=== PATIENT | female | born 1960 | race Caucasian/White ===

== ENCOUNTER 2020-01-06 18:49 | Inpatient (IN) | payer MEDICAID, OTHER ==
[~2020-01-06] VITALS: Ht 165.1 cm; Wt 102.5 kg
[2020-01-06] MEDS ORDERED: FUROSEMIDE 40MG/4ML VIAL IVP ONE (19:30)
[2020-01-06] MEDS ORDERED: ENALAPRIL 2.5MG/2ML VIAL 2ML IV ONE (19:30)
[2020-01-06] MEDS ORDERED: ENALAPRIL 1.25MG/ML VIAL 1ML IV ONE (19:30)
[2020-01-06] MEDS ORDERED: MORPHINE SULFATE 4 MG/ML CPJ (NOT FOR IM USE) IV ONE ×2 (19:45→21:30)
[2020-01-06 19:52] LABS: HEMATOCRIT. 47.7 % (36.0-48.0); HEMOGLOBIN. 15.6 g/dL (12.0-16.0); MEAN CORPUSCULAR HEMOGLOBIN 28.2 pg (28.0-32.0); MEAN PLATELET VOLUME 8.5 fl (7.4-10.4); PLATELET 529 x1000/uL (130-400); RED BLOOD CELL COUNT 5.55 mill/uL (4.2-5.4); RED CELL DISTRIBUTION WIDTH 15.5 % (11.6-14.6)
[2020-01-06 19:53] LABS: BG BASE EXCESS -0.8 mmol/L (-2.0-2.0); BG BILEVEL POS AIRWAY PRESSURE 15/5; BG CARBOXYHEMOGLOBIN 1.7 % (0.5-1.5); BG DEOXYHEMOGLOBIN 0.9 % (0.0-5.0); BG FRACTION INSPIRED OXYGEN 60; BG METHEMOGLOBIN 0.1 % (0.0-1.5); BG OXYGEN SATURATION 99.1 % (92.0-98.5); BG OXYHEMOGLOBIN 97.3 % (94.0-97.0); BG PCO2 35.8 mmHg (35.0-45.0); BG PH 7.426 (7.350-7.450); BG PO2 187.4 mmHg (75.0-100.0); BG SAMPLE SITE RIGHT RADIAL; BG TOTAL HEMOGLOBIN 15.7 g/dL (12.0-18.0); BG VENT MODE MASK - BIPAP; BG VENT RATE 20 set
[2020-01-06 19:54] LABS: CHLORIDE 98 mEq/L (98-107)
[2020-01-06 19:55] LABS: INR 1.1; PARTIAL THROMBOPLASTIN TIME 23.3 sec (23.4-31.0); PROTHROMBIN TIME 11.5 sec (9.6-11.0)
[2020-01-06] MEDS ORDERED: VANCOMYCIN 1 G PREMIX 200 ML IV SCH (20:15)
[2020-01-06] MEDS ORDERED: PIPERACILLIN/TAZOBACTAM 3.375GM/50ML PREMIX IV SCH (20:15)
[2020-01-06] MEDS ORDERED: PIPERACILLIN/TAZ 3.375G PREMIX 50 ML IV ONE (20:15)
[2020-01-06 20:59] LABS: PLATELET ESTIMATE INCREAS
[2020-01-06] MEDS ORDERED: IOHEXOL-350 100 ML BOTTLE ONE (22:27)
[2020-01-07] VITALS (93 sets, daily range): BP systolic -11–262; BP diastolic -11–261
[2020-01-07] MEDS ORDERED: BUPIVACAINE HCL 0.5% (5MG/ML) 50ML ONE (00:05)
[2020-01-07] MEDS ORDERED: NEOSTIGMINE METHYLSULFATE 1MG/ML 10 ML VIAL ONE (00:35)
[2020-01-07] MEDS ORDERED: FENTANYL CITRATE/PF 50MCG/ML 2ML VIAL ONE (00:35)
[2020-01-07] MEDS ORDERED: ROCURONIUM BROMIDE 10MG/ML VIAL 5ML IV ONE (00:35)
[2020-01-07] MEDS ORDERED: GLYCOPYRROLATE 0.2 MG/ML 2ML VIAL ONE (00:36)
[2020-01-07] MEDS ORDERED: MIDAZOLAM HCL 2 MG/2 ML VIAL ONE (00:36)
[2020-01-07] MEDS ORDERED: PROPOFOL 200MG/20ML VIAL IV ONE (00:36)
[2020-01-07] MEDS ORDERED: ONDANSETRON HCL 4MG/2ML INJ ONE (01:06)
[2020-01-07] MEDS ORDERED: DEXAMETHASONE 4MG/ML 1ML VIAL ONE (01:06)
[2020-01-07] MEDS ORDERED: HYDROMORPHONE HCL/PF 2MG/ML (OR) ONE (01:07)
[2020-01-07] MEDS: DEXT 5%/0.45% NACL KCL 20MEQ/L 1,000 ML IV SCH ×3 (02:58→23:45)
[2020-01-07] MEDS: CEFAZOLIN 1000MG PREMIX 50 ML IV SCH ×3 (03:09→20:56)
[2020-01-07] MEDS: METRONIDAZOLE 500 MG PREMIX 100 ML IV SCH ×2 (03:26→12:12)
[2020-01-07 03:29] LABS: BG BASE EXCESS -3.2 mmol/L (-2.0-2.0); BG CARBOXYHEMOGLOBIN 0.7 % (0.5-1.5); BG DEOXYHEMOGLOBIN 0.7 % (0.0-5.0); BG FRACTION INSPIRED OXYGEN 100; BG HCO3 ACT 23.3 mmol/L (22.0-26.0); BG METHEMOGLOBIN 0.1 % (0.0-1.5); BG OXYGEN SATURATION 99.3 % (92.0-98.5); BG OXYHEMOGLOBIN 98.5 % (94.0-97.0); BG PCO2 47.5 mmHg (35.0-45.0); BG PH 7.308 (7.350-7.450); BG PO2 242.9 mmHg (75.0-100.0); BG SAMPLE SITE A-LINE; BG TIDAL VOLUME(mL) 600 mL; BG TOTAL HEMOGLOBIN 13.1 g/dL (12.0-18.0); BG VENT MODE VENT - A/C; BG VENT RATE 12 set
[2020-01-07] MEDS ORDERED: LORAZEPAM 2MG/ML CPJ IM PRN (04:00)
[2020-01-07] MEDS ORDERED: DOPAMINE 400MG/250ML PREMIX 250 ML IV PRN (04:00)
[2020-01-07 06:29] LABS: HEMATOCRIT. 40.5 % (36.0-48.0); HEMOGLOBIN. 13.1 g/dL (12.0-16.0); MEAN CORPUSCULAR HEMOGLOBIN 28.2 pg (28.0-32.0); MEAN CORPUSCULAR VOLUME 87.2 fL (81.0-99.0); MEAN PLATELET VOLUME 8.3 fl (7.4-10.4); PLATELET 345 x1000/uL (130-400); RED BLOOD CELL COUNT 4.65 mill/uL (4.2-5.4); RED CELL DISTRIBUTION WIDTH 15.5 % (11.6-14.6)
[2020-01-07] MEDS ORDERED: SODIUM CHLORIDE 0.9% 500 ML IV ONE ×2 (08:29→08:30)
[2020-01-07] MEDS ORDERED: PHENYLEPHRINE 20 MG in DEXT 5% WATER 248 ML IV PRN (08:30)
[2020-01-07] MEDS: PANTOPRAZOLE SODIUM 40 MG/VIAL IV SCH (08:55)
[2020-01-07] MEDS: ENOXAPARIN 30MG/0.3ML SYR SUBCUT SCH ×2 (08:56→21:17)
[2020-01-07] MEDS ORDERED: ONDANSETRON HCL 4MG/2ML INJ IV PRN (09:00)
[2020-01-07] MEDS ORDERED: ENOXAPARIN 40MG/0.4ML SYR SUBCUT SCH (09:00)
[2020-01-07] MEDS ORDERED: SODIUM CHLORIDE 0.9% 1,000 ML IV ONE ×2 (09:30→11:30)
[2020-01-07 09:58] LABS: BG CARBOXYHEMOGLOBIN 0.6 % (0.5-1.5); BG DEOXYHEMOGLOBIN 1.7 % (0.0-5.0); BG FRACTION INSPIRED OXYGEN 70; BG HCO3 ACT 24.3 mmol/L (22.0-26.0); BG METHEMOGLOBIN 0.3 % (0.0-1.5); BG OXYGEN SATURATION 98.3 % (92.0-98.5); BG OXYHEMOGLOBIN 97.4 % (94.0-97.0); BG PCO2 52.8 mmHg (35.0-45.0); BG PO2 135.4 mmHg (75.0-100.0); BG SAMPLE SITE RIGHT RADIAL; BG TIDAL VOLUME(mL) 600 mL; BG TOTAL HEMOGLOBIN 12.6 g/dL (12.0-18.0); BG VENT MODE VENT - A/C; BG VENT RATE 12 set
[2020-01-07] MEDS: MORPHINE SULFATE 2 MG/ML CPJ (NOT FOR IM USE) IV PRN (10:04)
[2020-01-07 10:37] LABS: PLATELET ESTIMATE NORMAL
[2020-01-07] MEDS ORDERED: LIDOCAINE HCL 1% 20ML VIAL (Pyxis) INJ ONE (10:53)
[2020-01-07 12:26] LABS: BG BASE EXCESS -0.2 mmol/L (-2.0-2.0); BG CARBOXYHEMOGLOBIN 0.2 % (0.5-1.5); BG DEOXYHEMOGLOBIN 1.4 % (0.0-5.0); BG FRACTION INSPIRED OXYGEN 70; BG HCO3 ACT 25.2 mmol/L (22.0-26.0); BG METHEMOGLOBIN 0.3 % (0.0-1.5); BG OXYGEN SATURATION 98.6 % (92.0-98.5); BG OXYHEMOGLOBIN 98.1 % (94.0-97.0); BG PCO2 44.1 mmHg (35.0-45.0); BG PH 7.375 (7.350-7.450); BG PO2 135.7 mmHg (75.0-100.0); BG SAMPLE SITE RIGHT BRACHIAL; BG TIDAL VOLUME(mL) 600 mL; BG TOTAL HEMOGLOBIN 12.3 g/dL (12.0-18.0); BG VENT MODE VENT - A/C; BG VENT RATE 18 set
[2020-01-07] MEDS: LORAZEPAM 2MG/ML CPJ IM PRN ×2 (16:58→21:04)
[2020-01-07 17:50] LABS: LDL CHOLESTEROL 24 mg/dL (5-100)
[2020-01-07 17:52] LABS: CREATINE KINASE 271 IU/L (26-192); HDL CHOLESTEROL 18 mg/dL (40-59); T4 FREE 1.53 ng/dL (0.76-1.46)
[2020-01-07] MEDS: IPRATROPIUM/ALBUTEROL 0.5-3(2.5)MG/3ML NEB HHN SCH (20:37)
[2020-01-07 23:49] LABS: CREATINE KINASE 338 IU/L (26-192)
[2020-01-07 23:50] LABS: CREATINE KINASE MB FRACTION 1.6 ng/mL (0.5-3.6)
[2020-01-08] VITALS (37 sets, daily range): BP systolic 95–139; BP diastolic 52–90
[2020-01-08] MEDS: MORPHINE SULFATE 2 MG/ML CPJ (NOT FOR IM USE) IV PRN ×5 (00:16→23:30)
[2020-01-08] MEDS: IPRATROPIUM/ALBUTEROL 0.5-3(2.5)MG/3ML NEB HHN SCH ×3 (02:17→14:34)
[2020-01-08] MEDS: CEFAZOLIN 1000MG PREMIX 50 ML IV SCH ×3 (04:05→20:49)
[2020-01-08] MEDS: METRONIDAZOLE 500 MG PREMIX 100 ML IV SCH ×3 (04:06→20:44)
[2020-01-08] MEDS: LORAZEPAM 2MG/ML CPJ IM PRN ×4 (06:26→23:55)
[2020-01-08 06:50] LABS: HEMATOCRIT. 32.5 % (36.0-48.0); HEMOGLOBIN. 10.5 g/dL (12.0-16.0); MEAN PLATELET VOLUME 8.7 fl (7.4-10.4); PLATELET 319 x1000/uL (130-400); RED BLOOD CELL COUNT 3.74 mill/uL (4.2-5.4); RED CELL DISTRIBUTION WIDTH 15.7 % (11.6-14.6)
[2020-01-08 07:02] LABS: CHLORIDE 106 mEq/L (98-107)
[2020-01-08 07:12] LABS: CREATINE KINASE 272 IU/L (26-192)
[2020-01-08 07:14] LABS: CREATINE KINASE MB FRACTION 1.3 ng/mL (0.5-3.6)
[2020-01-08] MEDS: PANTOPRAZOLE SODIUM 40 MG/VIAL IV SCH (08:13)
[2020-01-08] MEDS: ENOXAPARIN 30MG/0.3ML SYR SUBCUT SCH ×2 (08:14→21:00)
[2020-01-08 08:39] LABS: BG BASE EXCESS -0.7 mmol/L (-2.0-2.0); BG CARBOXYHEMOGLOBIN 0.3 % (0.5-1.5); BG FRACTION INSPIRED OXYGEN 70; BG HCO3 ACT 23.9 mmol/L (22.0-26.0); BG METHEMOGLOBIN 0.3 % (0.0-1.5); BG OXYHEMOGLOBIN 98.4 % (94.0-97.0); BG PCO2 39.1 mmHg (35.0-45.0); BG PH 7.404 (7.350-7.450); BG SAMPLE SITE RIGHT RADIAL; BG TIDAL VOLUME(mL) 600 mL; BG TOTAL HEMOGLOBIN 10.9 g/dL (12.0-18.0); BG VENT MODE VENT - A/C; BG VENT RATE 18 set
[2020-01-08] MEDS: DEXT 5%/0.45% NACL KCL 20MEQ/L 1,000 ML IV SCH ×2 (08:40→19:21)
[2020-01-08] MEDS ORDERED: DEXTROSE 50% WATER 50ML SYRINGE IV PRN (10:30)
[2020-01-08] MEDS: BLOOD SUGAR DIAGNOSTIC STRIP TEST SCH ×3 (11:11→22:01)
[2020-01-08] MEDS: INSULIN LISPRO 100 UNITS/ML SUBCUT SCH ×3 (12:37→21:00)
[2020-01-08 13:31] LABS: PLATELET ESTIMATE NORMAL
[2020-01-09] VITALS (47 sets, daily range): BP systolic 93–145; BP diastolic 26–89
[2020-01-09] MEDS: IPRATROPIUM/ALBUTEROL 0.5-3(2.5)MG/3ML NEB HHN SCH ×4 (00:28→20:52)
[2020-01-09] MEDS: PROPOFOL 10MG/ML 100ML 100 ML IV PRN ×3 (02:22→16:02)
[2020-01-09] MEDS: CEFAZOLIN 1000MG PREMIX 50 ML IV SCH ×3 (03:37→20:47)
[2020-01-09] MEDS: BLOOD SUGAR DIAGNOSTIC STRIP TEST SCH ×4 (03:37→23:27)
[2020-01-09] MEDS: METRONIDAZOLE 500 MG PREMIX 100 ML IV SCH ×3 (03:37→20:46)
[2020-01-09 05:36] LABS: HEMATOCRIT. 27.1 % (36.0-48.0); HEMOGLOBIN. 8.6 g/dL (12.0-16.0); MEAN CORPUSCULAR HEMOGLOBIN 28.2 pg (28.0-32.0); MEAN CORPUSCULAR VOLUME 88.3 fL (81.0-99.0); MEAN PLATELET VOLUME 8.4 fl (7.4-10.4); PLATELET 291 x1000/uL (130-400); RED BLOOD CELL COUNT 3.07 mill/uL (4.2-5.4)
[2020-01-09] MEDS: DEXT 5%/0.45% NACL KCL 20MEQ/L 1,000 ML IV SCH ×3 (05:39→08:19)
[2020-01-09 05:45] LABS: CHLORIDE 109 mEq/L (98-107)
[2020-01-09] MEDS: ENOXAPARIN 30MG/0.3ML SYR SUBCUT SCH ×2 (08:17→20:50)
[2020-01-09] MEDS: INSULIN LISPRO 100 UNITS/ML SUBCUT SCH ×4 (08:17→23:30)
[2020-01-09] MEDS: PANTOPRAZOLE SODIUM 40 MG/VIAL IV SCH (08:17)
[2020-01-09 08:28] LABS: BG BASE EXCESS -0.5 mmol/L (-2.0-2.0); BG CARBOXYHEMOGLOBIN 0.1 % (0.5-1.5); BG DEOXYHEMOGLOBIN 1.3 % (0.0-5.0); BG FRACTION INSPIRED OXYGEN 50; BG HCO3 ACT 23.6 mmol/L (22.0-26.0); BG METHEMOGLOBIN 0.3 % (0.0-1.5); BG OXYGEN SATURATION 98.7 % (92.0-98.5); BG OXYHEMOGLOBIN 98.3 % (94.0-97.0); BG PCO2 36.6 mmHg (35.0-45.0); BG PH 7.428 (7.350-7.450); BG PO2 137.1 mmHg (75.0-100.0); BG SAMPLE SITE RIGHT RADIAL; BG TIDAL VOLUME(mL) 600 mL; BG TOTAL HEMOGLOBIN 10.2 g/dL (12.0-18.0); BG VENT MODE VENT - A/C; BG VENT RATE 18 set
[2020-01-09] MEDS: NICOTINE 21MG PATCH TD SCH (10:33)
[2020-01-09] MEDS: LORAZEPAM 2MG/ML CPJ IM PRN ×2 (10:33→15:56)
[2020-01-09] MEDS ORDERED: PROPOFOL 10MG/ML 100ML 100 ML IV PRN (14:30)
[2020-01-09] MEDS ORDERED: FUROSEMIDE 40MG/4ML VIAL IVP NR (14:30)
[2020-01-09] MEDS: DEXT 5%/0.45% NACL 1000ML 1,000 ML IV SCH (15:29)
[2020-01-09 16:58] LABS: PLATELET ESTIMATE NORMAL
[2020-01-10] VITALS (37 sets, daily range): BP systolic 84–151; BP diastolic 49–68
[2020-01-10] MEDS: DEXT 5%/0.45% NACL 1000ML 1,000 ML IV SCH ×2 (01:31→14:45)
[2020-01-10] MEDS: PROPOFOL 10MG/ML 100ML 100 ML IV PRN ×3 (01:34→20:27)
[2020-01-10] MEDS: IPRATROPIUM/ALBUTEROL 0.5-3(2.5)MG/3ML NEB HHN SCH ×5 (02:11→23:56)
[2020-01-10 05:47] LABS: HEMATOCRIT. 30.6 % (36.0-48.0); MEAN CORPUSCULAR VOLUME 85.9 fL (81.0-99.0); MEAN PLATELET VOLUME 8.6 fl (7.4-10.4); PLATELET 339 x1000/uL (130-400); RED BLOOD CELL COUNT 3.56 mill/uL (4.2-5.4); RED CELL DISTRIBUTION WIDTH 15.7 % (11.6-14.6)
[2020-01-10 06:01] LABS: CHLORIDE 103 mEq/L (98-107)
[2020-01-10] MEDS: CEFAZOLIN 1000MG PREMIX 50 ML IV SCH ×2 (06:42→11:31)
[2020-01-10] MEDS: METRONIDAZOLE 500 MG PREMIX 100 ML IV SCH ×2 (06:42→11:30)
[2020-01-10] MEDS: INSULIN LISPRO 100 UNITS/ML SUBCUT SCH ×3 (06:49→18:00)
[2020-01-10] MEDS: BLOOD SUGAR DIAGNOSTIC STRIP TEST SCH ×3 (06:49→18:12)
[2020-01-10] MEDS: ENOXAPARIN 30MG/0.3ML SYR SUBCUT SCH ×2 (08:42→20:27)
[2020-01-10] MEDS: NICOTINE 21MG PATCH TD SCH (08:42)
[2020-01-10] MEDS: PANTOPRAZOLE SODIUM 40 MG/VIAL IV SCH (08:42)
[2020-01-10 11:08] LABS: PLATELET ESTIMATE NORMAL
[2020-01-10] MEDS: ACETAMINOPHEN 325MG TABLET PO PRN ×2 (11:30→18:12)
[2020-01-10] MEDS: FENTANYL CITRATE/PF 500 MCG in SODIUM CHLORIDE 0.9% 40 ML IV PRN ×2 (11:32→22:30)
[2020-01-10] MEDS ORDERED: CEFEPIME 1,000 MG in DEXTROSE 5% WATER 50 ML IV SCH (16:00)
[2020-01-10] MEDS: PIPERACILLIN/TAZOBACTAM 3.375 G in DEXT 5% WATER 100 ML IV SCH (18:12)
[2020-01-10] MEDS: ACETYLCYSTEINE 100MG/ML 10% VIAL 4ML INH SCH (23:57)
[2020-01-11] VITALS (65 sets, daily range): BP systolic 84–148; BP diastolic 45–93
[2020-01-11] MEDS: ACETAMINOPHEN 325MG TABLET PO PRN ×5 (00:36→22:04)
[2020-01-11] MEDS: PIPERACILLIN/TAZOBACTAM 3.375 G in DEXT 5% WATER 100 ML IV SCH ×5 (00:36→23:47)
[2020-01-11] MEDS: BLOOD SUGAR DIAGNOSTIC STRIP TEST SCH ×4 (00:36→18:24)
[2020-01-11] MEDS: PROPOFOL 10MG/ML 100ML 100 ML IV PRN ×2 (02:00→06:13)
[2020-01-11] MEDS: IPRATROPIUM/ALBUTEROL 0.5-3(2.5)MG/3ML NEB HHN SCH ×5 (03:36→20:55)
[2020-01-11 05:56] LABS: HEMOGLOBIN. 9.1 g/dL (12.0-16.0); RED BLOOD CELL COUNT 3.39 mill/uL (4.2-5.4)
[2020-01-11 05:57] LABS: MEAN CORPUSCULAR HEMOGLOBIN 26.9 pg (28.0-32.0); MEAN CORPUSCULAR VOLUME 85.6 fL (81.0-99.0); MEAN PLATELET VOLUME 8.9 fl (7.4-10.4); PLATELET 285 x1000/uL (130-400); RED CELL DISTRIBUTION WIDTH 15.6 % (11.6-14.6)
[2020-01-11] MEDS: INSULIN LISPRO 100 UNITS/ML SUBCUT SCH ×4 (06:00→18:00)
[2020-01-11 06:11] LABS: CHLORIDE 104 mEq/L (98-107)
[2020-01-11 08:18] LABS: BG BASE EXCESS 1.8 mmol/L (-2.0-2.0); BG CARBOXYHEMOGLOBIN 0.8 % (0.5-1.5); BG DEOXYHEMOGLOBIN 2.6 % (0.0-5.0); BG FRACTION INSPIRED OXYGEN 40; BG HCO3 ACT 25.9 mmol/L (22.0-26.0); BG METHEMOGLOBIN 0.2 % (0.0-1.5); BG OXYGEN SATURATION 97.4 % (92.0-98.5); BG OXYHEMOGLOBIN 96.4 % (94.0-97.0); BG PCO2 38.8 mmHg (35.0-45.0); BG PH 7.443 (7.350-7.450); BG PO2 89.3 mmHg (75.0-100.0); BG SAMPLE SITE RIGHT RADIAL; BG TIDAL VOLUME(mL) 600 mL; BG TOTAL HEMOGLOBIN 9.9 g/dL (12.0-18.0); BG VENT MODE VENT - A/C; BG VENT RATE 18 set
[2020-01-11] MEDS: ACETYLCYSTEINE 100MG/ML 10% VIAL 4ML INH SCH ×2 (08:43→16:36)
[2020-01-11] MEDS: PANTOPRAZOLE SODIUM 40 MG/VIAL IV SCH (09:01)
[2020-01-11] MEDS: ENOXAPARIN 30MG/0.3ML SYR SUBCUT SCH ×2 (09:02→21:55)
[2020-01-11] MEDS: NICOTINE 21MG PATCH TD SCH (09:03)
[2020-01-11] MEDS: FENTANYL CITRATE/PF 500 MCG in SODIUM CHLORIDE 0.9% 40 ML IV PRN (10:29)
[2020-01-11] MEDS: QUETIAPINE FUMARATE 25MG TABLET PO SCH ×2 (10:50→21:54)
[2020-01-11 13:25] LABS: PLATELET ESTIMATE NORMAL
[2020-01-11] MEDS: DEXT 5%/0.45% NACL 1000ML 1,000 ML IV SCH (14:52)
[2020-01-11] MEDS: MICAFUNGIN 100 MG in SODIUM CHLORIDE 0.9% 100 ML IV SCH (16:27)
[2020-01-11] MEDS: LORAZEPAM 2MG/ML CPJ IV PRN ×2 (17:51→21:55)
[2020-01-12] VITALS (63 sets, daily range): BP systolic 85–166; BP diastolic 44–76
[2020-01-12] MEDS: BLOOD SUGAR DIAGNOSTIC STRIP TEST SCH ×4 (00:03→18:09)
[2020-01-12] MEDS: IPRATROPIUM/ALBUTEROL 0.5-3(2.5)MG/3ML NEB HHN SCH ×6 (00:13→20:02)
[2020-01-12] MEDS: ACETYLCYSTEINE 100MG/ML 10% VIAL 4ML INH SCH ×3 (00:13→16:44)
[2020-01-12] MEDS: PIPERACILLIN/TAZOBACTAM 3.375 G in DEXT 5% WATER 100 ML IV SCH ×3 (05:44→17:09)
[2020-01-12] MEDS: INSULIN LISPRO 100 UNITS/ML SUBCUT SCH ×4 (05:44→18:00)
[2020-01-12 06:40] LABS: HEMATOCRIT. 29.7 % (36.0-48.0); HEMOGLOBIN. 9.4 g/dL (12.0-16.0); MEAN CORPUSCULAR HEMOGLOBIN 27.4 pg (28.0-32.0); MEAN CORPUSCULAR VOLUME 86.2 fL (81.0-99.0); MEAN PLATELET VOLUME 9.1 fl (7.4-10.4); PLATELET 286 x1000/uL (130-400); RED BLOOD CELL COUNT 3.44 mill/uL (4.2-5.4)
[2020-01-12 06:41] LABS: CHLORIDE 103 mEq/L (98-107)
[2020-01-12 07:47] LABS: PLATELET ESTIMATE NORMAL
[2020-01-12] MEDS: PANTOPRAZOLE SODIUM 40 MG/VIAL IV SCH (08:08)
[2020-01-12] MEDS: NICOTINE 21MG PATCH TD SCH (08:08)
[2020-01-12] MEDS: ENOXAPARIN 30MG/0.3ML SYR SUBCUT SCH ×2 (08:09→20:54)
[2020-01-12] MEDS: QUETIAPINE FUMARATE 25MG TABLET PO SCH ×2 (08:09→20:53)
[2020-01-12] MEDS ORDERED: FUROSEMIDE 40MG/4ML VIAL IVP NR (11:45)
[2020-01-12 12:43] LABS: BG BASE EXCESS 5.8 mmol/L (-2.0-2.0); BG CARBOXYHEMOGLOBIN 0.4 % (0.5-1.5); BG DEOXYHEMOGLOBIN 5.7 % (0.0-5.0); BG FRACTION INSPIRED OXYGEN 40; BG HCO3 ACT 31.1 mmol/L (22.0-26.0); BG METHEMOGLOBIN 0.3 % (0.0-1.5); BG OXYGEN SATURATION 94.3 % (92.0-98.5); BG OXYHEMOGLOBIN 93.6 % (94.0-97.0); BG PCO2 48.9 mmHg (35.0-45.0); BG PH 7.422 (7.350-7.450); BG SAMPLE SITE RIGHT RADIAL; BG TIDAL VOLUME(mL) 600 mL; BG TOTAL HEMOGLOBIN 10.5 g/dL (12.0-18.0); BG VENT MODE VENT - A/C; BG VENT RATE 14 set
[2020-01-12] MEDS: MICAFUNGIN 100 MG in SODIUM CHLORIDE 0.9% 100 ML IV SCH (16:20)
[2020-01-12] MEDS: LORAZEPAM 2MG/ML CPJ IV PRN (17:23)
[2020-01-12] MEDS: FENTANYL CITRATE/PF 500 MCG in SODIUM CHLORIDE 0.9% 40 ML IV PRN (19:24)
[2020-01-12] MEDS: DEXT 5%/0.45% NACL 1000ML 1,000 ML IV SCH (19:24)
[2020-01-12] MEDS: ACETAMINOPHEN 325MG TABLET PO PRN (20:54)
[2020-01-13] VITALS (59 sets, daily range): BP systolic 92–137; BP diastolic 50–95
[2020-01-13] MEDS: ACETYLCYSTEINE 100MG/ML 10% VIAL 4ML INH SCH ×3 (00:14→16:35)
[2020-01-13] MEDS: IPRATROPIUM/ALBUTEROL 0.5-3(2.5)MG/3ML NEB HHN SCH ×6 (00:14→20:27)
[2020-01-13] MEDS: PIPERACILLIN/TAZOBACTAM 3.375 G in DEXT 5% WATER 100 ML IV SCH ×2 (01:04→06:01)
[2020-01-13] MEDS: FENTANYL CITRATE/PF 500 MCG in SODIUM CHLORIDE 0.9% 40 ML IV PRN ×2 (02:17→12:57)
[2020-01-13 05:56] LABS: HEMATOCRIT. 31.7 % (36.0-48.0); HEMOGLOBIN. 10.2 g/dL (12.0-16.0); MEAN CORPUSCULAR HEMOGLOBIN 27.7 pg (28.0-32.0); MEAN CORPUSCULAR VOLUME 86.3 fL (81.0-99.0); RED BLOOD CELL COUNT 3.67 mill/uL (4.2-5.4); RED CELL DISTRIBUTION WIDTH 15.9 % (11.6-14.6)
[2020-01-13] MEDS: INSULIN LISPRO 100 UNITS/ML SUBCUT SCH ×4 (06:00→17:27)
[2020-01-13] MEDS: BLOOD SUGAR DIAGNOSTIC STRIP TEST SCH ×4 (06:01→17:04)
[2020-01-13 06:07] LABS: CHLORIDE 101 mEq/L (98-107)
[2020-01-13] MEDS: QUETIAPINE FUMARATE 25MG TABLET PO SCH ×2 (08:04→21:18)
[2020-01-13] MEDS: PANTOPRAZOLE SODIUM 40 MG/VIAL IV SCH (08:04)
[2020-01-13] MEDS: NICOTINE 21MG PATCH TD SCH (08:04)
[2020-01-13 08:47] LABS: BG BASE EXCESS 6.7 mmol/L (-2.0-2.0); BG DEOXYHEMOGLOBIN 4.6 % (0.0-5.0); BG FRACTION INSPIRED OXYGEN 40; BG HCO3 ACT 31.7 mmol/L (22.0-26.0); BG METHEMOGLOBIN 0.3 % (0.0-1.5); BG OXYGEN SATURATION 95.3 % (92.0-98.5); BG OXYHEMOGLOBIN 94.1 % (94.0-97.0); BG PCO2 47.7 mmHg (35.0-45.0); BG PH 7.441 (7.350-7.450); BG PO2 72.8 mmHg (75.0-100.0); BG SAMPLE SITE RIGHT RADIAL; BG TIDAL VOLUME(mL) 600 mL; BG TOTAL HEMOGLOBIN 10.3 g/dL (12.0-18.0); BG VENT MODE VENT - A/C; BG VENT RATE 14 set
[2020-01-13] MEDS: ENOXAPARIN 30MG/0.3ML SYR SUBCUT SCH ×2 (10:28→21:19)
[2020-01-13] MEDS: MEROPENEM 500 MG in SODIUM CHLORIDE 0.9% 50 ML IV SCH ×2 (12:28→21:18)
[2020-01-13 12:39] LABS: PLATELET 251 x1000/uL (130-400)
[2020-01-13 12:47] LABS: ATYPICAL LYMPHOCYTES 1; NUCLEATED RED BLOOD CELLS 1 /100 WBC; PLATELET ESTIMATE NORMAL
[2020-01-13] MEDS ORDERED: VANCOMYCIN 2,000 MG in DEXT 5% WATER 500 ML IV SCH (13:00)
[2020-01-13] MEDS: MICAFUNGIN 100 MG in SODIUM CHLORIDE 0.9% 100 ML IV SCH (16:33)
[2020-01-13] MEDS: DEXT 5%/0.45% NACL 1000ML 1,000 ML IV SCH (16:36)
[2020-01-13] MEDS: ACETAMINOPHEN 325MG TABLET PO PRN (17:28)
[2020-01-14] VITALS (58 sets, daily range): BP systolic 90–169; BP diastolic 27–136
[2020-01-14] MEDS: IPRATROPIUM/ALBUTEROL 0.5-3(2.5)MG/3ML NEB HHN SCH ×6 (00:22→20:20)
[2020-01-14] MEDS: ACETYLCYSTEINE 100MG/ML 10% VIAL 4ML INH SCH ×3 (00:22→16:50)
[2020-01-14] MEDS: FENTANYL CITRATE/PF 500 MCG in SODIUM CHLORIDE 0.9% 40 ML IV PRN ×3 (02:32→22:42)
[2020-01-14] MEDS: MEROPENEM 500 MG in SODIUM CHLORIDE 0.9% 50 ML IV SCH ×3 (04:52→20:07)
[2020-01-14 05:49] LABS: CHLORIDE 100 mEq/L (98-107)
[2020-01-14 05:58] LABS: HEMATOCRIT. 29.2 % (36.0-48.0); HEMOGLOBIN. 9.2 g/dL (12.0-16.0); MEAN CORPUSCULAR HEMOGLOBIN 26.8 pg (28.0-32.0); MEAN CORPUSCULAR VOLUME 85.4 fL (81.0-99.0); MEAN PLATELET VOLUME 9.4 fl (7.4-10.4); PLATELET 277 x1000/uL (130-400); RED BLOOD CELL COUNT 3.42 mill/uL (4.2-5.4); RED CELL DISTRIBUTION WIDTH 15.9 % (11.6-14.6)
[2020-01-14] MEDS: INSULIN LISPRO 100 UNITS/ML SUBCUT SCH ×5 (06:00→23:56)
[2020-01-14] MEDS: BLOOD SUGAR DIAGNOSTIC STRIP TEST SCH ×5 (06:22→23:57)
[2020-01-14] MEDS: VANCOMYCIN 1500MG in DEXTROSE 5% WATER 250ML IV SCH ×2 (06:23→23:56)
[2020-01-14] MEDS: ENOXAPARIN 30MG/0.3ML SYR SUBCUT SCH ×2 (08:10→20:08)
[2020-01-14 08:12] LABS: BG BASE EXCESS 6.5 mmol/L (-2.0-2.0); BG CARBOXYHEMOGLOBIN 0.4 % (0.5-1.5); BG DEOXYHEMOGLOBIN 4.6 % (0.0-5.0); BG HCO3 ACT 31.4 mmol/L (22.0-26.0); BG METHEMOGLOBIN 0.3 % (0.0-1.5); BG OXYGEN SATURATION 95.4 % (92.0-98.5); BG OXYHEMOGLOBIN 94.7 % (94.0-97.0); BG PCO2 46.9 mmHg (35.0-45.0); BG PH 7.444 (7.350-7.450); BG PO2 73.5 mmHg (75.0-100.0); BG SAMPLE SITE RIGHT RADIAL; BG TIDAL VOLUME(mL) 600 mL; BG VENT MODE VENT - A/C; BG VENT RATE 14 set
[2020-01-14] MEDS: QUETIAPINE FUMARATE 25MG TABLET PO SCH (08:13)
[2020-01-14] MEDS: PANTOPRAZOLE SODIUM 40 MG/VIAL IV SCH (08:13)
[2020-01-14] MEDS: NICOTINE 21MG PATCH TD SCH (08:13)
[2020-01-14] MEDS ORDERED: RACEPINEPHRINE 2.25% 0.5ML NEB VIAL ONE (08:45)
[2020-01-14] MEDS ORDERED: VECURONIUM BROMIDE 10 MG/VIAL IV ONE (08:56)
[2020-01-14] MEDS ORDERED: ETOMIDATE 2MG/ML 10ML VIAL IV ONE (08:56)
[2020-01-14] MEDS: LORAZEPAM 2MG/ML CPJ IV PRN ×2 (09:18→20:08)
[2020-01-14 11:24] LABS: BG BASE EXCESS 4.9 mmol/L (-2.0-2.0); BG CARBOXYHEMOGLOBIN 0.6 % (0.5-1.5); BG DEOXYHEMOGLOBIN 4.8 % (0.0-5.0); BG HCO3 ACT 30.8 mmol/L (22.0-26.0); BG METHEMOGLOBIN 0.3 % (0.0-1.5); BG OXYGEN SATURATION 95.2 % (92.0-98.5); BG OXYHEMOGLOBIN 94.3 % (94.0-97.0); BG PCO2 52.1 mmHg (35.0-45.0); BG PH 7.389 (7.350-7.450); BG PO2 76.6 mmHg (75.0-100.0); BG SAMPLE SITE RIGHT RADIAL; BG TIDAL VOLUME(mL) 600 mL; BG TOTAL HEMOGLOBIN 10.5 g/dL (12.0-18.0); BG VENT MODE VENT - A/C; BG VENT RATE 14 set
[2020-01-14] MEDS ORDERED: RACEPINEPHRINE 2.25% 0.5ML NEB VIAL HHN NR (11:30)
[2020-01-14 12:37] LABS: PLATELET ESTIMATE NORMAL
[2020-01-14] MEDS: DEXT 5%/0.45% NACL 1000ML 1,000 ML IV SCH (14:49)
[2020-01-14] MEDS: ALPRAZOLAM 0.5 MG TABLET PO SCH ×2 (14:49→22:01)
[2020-01-14] MEDS: MICAFUNGIN 100 MG in SODIUM CHLORIDE 0.9% 100 ML IV SCH (16:26)
[2020-01-14] MEDS: ACETAMINOPHEN 325MG TABLET PO PRN (22:01)
[2020-01-15] VITALS (45 sets, daily range): BP systolic 90–131; BP diastolic 33–74
[2020-01-15] MEDS: ACETYLCYSTEINE 100MG/ML 10% VIAL 4ML INH SCH ×3 (00:14→17:35)
[2020-01-15] MEDS: IPRATROPIUM/ALBUTEROL 0.5-3(2.5)MG/3ML NEB HHN SCH ×6 (00:14→21:17)
[2020-01-15] MEDS: LORAZEPAM 2MG/ML CPJ IV PRN (00:42)
[2020-01-15 05:19] LABS: BASOPHILS % 0.7 % (0.0-2.0); EOSINOPHILS % 0.4 % (0.0-5.0); HEMATOCRIT. 28.4 % (36.0-48.0); HEMOGLOBIN. 9.1 g/dL (12.0-16.0); LYMPHOCYTES % 7.7 % (20.0-50.0); MEAN CORPUSCULAR HEMOGLOBIN 27.5 pg (28.0-32.0); MEAN CORPUSCULAR VOLUME 86.3 fL (81.0-99.0); MEAN PLATELET VOLUME 9.9 fl (7.4-10.4); MONOCYTES % 4.4 % (2.0-8.0); NEUTROPHILS % 86.8 % (40.0-76.0); PLATELET 283 x1000/uL (130-400); RED BLOOD CELL COUNT 3.29 mill/uL (4.2-5.4); RED CELL DISTRIBUTION WIDTH 16.2 % (11.6-14.6)
[2020-01-15] MEDS: ALPRAZOLAM 0.5 MG TABLET PO SCH ×3 (05:27→21:12)
[2020-01-15] MEDS: MEROPENEM 500 MG in SODIUM CHLORIDE 0.9% 50 ML IV SCH ×2 (05:27→13:18)
[2020-01-15] MEDS: BLOOD SUGAR DIAGNOSTIC STRIP TEST SCH ×4 (05:27→23:24)
[2020-01-15 05:47] LABS: CHLORIDE 98 mEq/L (98-107)
[2020-01-15] MEDS: INSULIN LISPRO 100 UNITS/ML SUBCUT SCH ×4 (06:00→23:24)
[2020-01-15] MEDS: FENTANYL CITRATE/PF 500 MCG in SODIUM CHLORIDE 0.9% 40 ML IV PRN ×2 (07:02→14:49)
[2020-01-15 07:30] LABS: BG BASE EXCESS 9.5 mmol/L (-2.0-2.0); BG CARBOXYHEMOGLOBIN 0.3 % (0.5-1.5); BG DEOXYHEMOGLOBIN 3.1 % (0.0-5.0); BG FRACTION INSPIRED OXYGEN 40; BG HCO3 ACT 34.6 mmol/L (22.0-26.0); BG METHEMOGLOBIN 0.3 % (0.0-1.5); BG OXYGEN SATURATION 96.9 % (92.0-98.5); BG OXYHEMOGLOBIN 96.3 % (94.0-97.0); BG PCO2 50.1 mmHg (35.0-45.0); BG PH 7.457 (7.350-7.450); BG PO2 86.1 mmHg (75.0-100.0); BG SAMPLE SITE RIGHT RADIAL; BG TIDAL VOLUME(mL) 600 mL; BG TOTAL HEMOGLOBIN 9.5 g/dL (12.0-18.0); BG VENT MODE VENT - A/C; BG VENT RATE 14 set
[2020-01-15] MEDS: PANTOPRAZOLE SODIUM 40 MG/VIAL IV SCH (08:44)
[2020-01-15] MEDS: NICOTINE 21MG PATCH TD SCH (08:44)
[2020-01-15] MEDS: ENOXAPARIN 30MG/0.3ML SYR SUBCUT SCH ×2 (08:51→21:11)
[2020-01-15] MEDS: MIDAZOLAM HCL 50 MG in DEXTROSE 5% WATER 40 ML IV PRN ×3 (12:42→19:31)
[2020-01-15] MEDS ORDERED: RACEPINEPHRINE 2.25% 0.5ML NEB VIAL HHN PRN (14:15)
[2020-01-15] MEDS ORDERED: VANCOMYCIN 1500MG in DEXTROSE 5% WATER 250ML IV SCH (16:00)
[2020-01-15] MEDS: MICAFUNGIN 100 MG in SODIUM CHLORIDE 0.9% 100 ML IV SCH (16:01)
[2020-01-15] MEDS: LEVOFLOXACIN 500MG PREMIX 100 ML IV SCH (18:21)
[2020-01-15] MEDS: DEXT 5%/0.9% NACL 1,000 ML IV SCH (18:26)
[2020-01-15] MEDS: CEFTAZIDIME PENTAHYDRATE 2 G in DEXT 5% WATER 100 ML IV SCH (19:42)
[2020-01-15] MEDS: METRONIDAZOLE 500 MG PREMIX 100 ML IV SCH (21:11)
[2020-01-16] VITALS (60 sets, daily range): BP systolic 92–130; BP diastolic 40–74
[2020-01-16] MEDS: IPRATROPIUM/ALBUTEROL 0.5-3(2.5)MG/3ML NEB HHN SCH ×6 (00:38→20:44)
[2020-01-16] MEDS: ACETYLCYSTEINE 100MG/ML 10% VIAL 4ML INH SCH ×3 (00:38→16:03)
[2020-01-16] MEDS: FENTANYL CITRATE/PF 500 MCG in SODIUM CHLORIDE 0.9% 40 ML IV PRN ×2 (04:17→12:06)
[2020-01-16] MEDS: CEFTAZIDIME PENTAHYDRATE 2 G in DEXT 5% WATER 100 ML IV SCH ×3 (04:17→20:34)
[2020-01-16] MEDS: ALPRAZOLAM 0.5 MG TABLET PO SCH ×3 (05:20→22:59)
[2020-01-16] MEDS: INSULIN LISPRO 100 UNITS/ML SUBCUT SCH ×3 (06:00→17:17)
[2020-01-16] MEDS: BLOOD SUGAR DIAGNOSTIC STRIP TEST SCH ×3 (06:12→17:09)
[2020-01-16 06:28] LABS: BASOPHILS % 0.5 % (0.0-2.0); EOSINOPHILS % 0.2 % (0.0-5.0); HEMATOCRIT. 27.1 % (36.0-48.0); HEMOGLOBIN. 8.6 g/dL (12.0-16.0); LYMPHOCYTES % 8.5 % (20.0-50.0); MEAN CORPUSCULAR HEMOGLOBIN 27.1 pg (28.0-32.0); MEAN PLATELET VOLUME 9.7 fl (7.4-10.4); NEUTROPHILS % 85.8 % (40.0-76.0); PLATELET 320 x1000/uL (130-400); RED BLOOD CELL COUNT 3.18 mill/uL (4.2-5.4); RED CELL DISTRIBUTION WIDTH 16.1 % (11.6-14.6)
[2020-01-16 06:35] LABS: CHLORIDE 99 mEq/L (98-107)
[2020-01-16 06:42] LABS: PHOSPHORUS 2.1 mg/dL (2.5-4.9)
[2020-01-16 06:45] LABS: INR 1.3; PROTHROMBIN TIME 13.5 sec (9.6-11.0)
[2020-01-16 08:09] LABS: BG BASE EXCESS 4.3 mmol/L (-2.0-2.0); BG CARBOXYHEMOGLOBIN 0.6 % (0.5-1.5); BG DEOXYHEMOGLOBIN 2.8 % (0.0-5.0); BG FRACTION INSPIRED OXYGEN 40; BG HCO3 ACT 30.1 mmol/L (22.0-26.0); BG METHEMOGLOBIN 0.3 % (0.0-1.5); BG OXYGEN SATURATION 97.2 % (92.0-98.5); BG OXYHEMOGLOBIN 96.3 % (94.0-97.0); BG PH 7.381 (7.350-7.450); BG PO2 88.8 mmHg (75.0-100.0); BG SAMPLE SITE RIGHT RADIAL; BG TIDAL VOLUME(mL) 600 mL; BG VENT MODE VENT - A/C; BG VENT RATE 14 set
[2020-01-16] MEDS: NICOTINE 21MG PATCH TD SCH (08:24)
[2020-01-16] MEDS: PANTOPRAZOLE SODIUM 40 MG/VIAL IV SCH (08:25)
[2020-01-16] MEDS: METRONIDAZOLE 500 MG PREMIX 100 ML IV SCH ×2 (08:25→21:18)
[2020-01-16] MEDS ORDERED: ENOXAPARIN 30MG/0.3ML SYR SUBCUT SCH (09:00)
[2020-01-16] MEDS: MIDAZOLAM HCL 50 MG in DEXTROSE 5% WATER 40 ML IV PRN (09:35)
[2020-01-16] MEDS ORDERED: POTASSIUM PHOS,M-BASIC-D-BASIC 30 MMOL in SODIUM CHLORIDE 0.9% 500 ML IV ONE (10:00)
[2020-01-16] MEDS ORDERED: FUROSEMIDE 40MG/4ML VIAL IVP NR (10:00)
[2020-01-16] MEDS: MICAFUNGIN 100 MG in SODIUM CHLORIDE 0.9% 100 ML IV SCH (16:07)
[2020-01-16] MEDS: DEXT 5%/0.9% NACL 1,000 ML IV SCH (16:08)
[2020-01-16] MEDS: LEVOFLOXACIN 500MG PREMIX 100 ML IV SCH (17:09)
[2020-01-17] VITALS (47 sets, daily range): BP systolic 95–134; BP diastolic 36–66
[2020-01-17] MEDS: BLOOD SUGAR DIAGNOSTIC STRIP TEST SCH ×5 (00:16→23:41)
[2020-01-17] MEDS: IPRATROPIUM/ALBUTEROL 0.5-3(2.5)MG/3ML NEB HHN SCH ×6 (01:01→19:55)
[2020-01-17] MEDS: ACETYLCYSTEINE 100MG/ML 10% VIAL 4ML INH SCH ×3 (01:02→16:26)
[2020-01-17] MEDS: CEFTAZIDIME PENTAHYDRATE 2 G in DEXT 5% WATER 100 ML IV SCH ×3 (04:55→20:15)
[2020-01-17 05:37] LABS: EOSINOPHILS % 0.5 % (0.0-5.0); HEMATOCRIT. 26.1 % (36.0-48.0); HEMOGLOBIN. 8.5 g/dL (12.0-16.0); LYMPHOCYTES % 7.9 % (20.0-50.0); MEAN CORPUSCULAR HEMOGLOBIN 27.5 pg (28.0-32.0); MEAN CORPUSCULAR VOLUME 84.3 fL (81.0-99.0); MEAN PLATELET VOLUME 9.3 fl (7.4-10.4); MONOCYTES % 4.8 % (2.0-8.0); NEUTROPHILS % 85.8 % (40.0-76.0); PLATELET 342 x1000/uL (130-400); RED CELL DISTRIBUTION WIDTH 16.1 % (11.6-14.6)
[2020-01-17 05:39] LABS: CHLORIDE 101 mEq/L (98-107)
[2020-01-17 05:50] LABS: PHOSPHORUS 2.6 mg/dL (2.5-4.9)
[2020-01-17] MEDS: INSULIN LISPRO 100 UNITS/ML SUBCUT SCH ×5 (06:00→23:48)
[2020-01-17] MEDS: ALPRAZOLAM 0.5 MG TABLET PO SCH ×3 (06:57→21:56)
[2020-01-17 08:29] LABS: BG BASE EXCESS 5.9 mmol/L (-2.0-2.0); BG CARBOXYHEMOGLOBIN 0.3 % (0.5-1.5); BG DEOXYHEMOGLOBIN 2.6 % (0.0-5.0); BG FRACTION INSPIRED OXYGEN 50; BG HCO3 ACT 30.2 mmol/L (22.0-26.0); BG METHEMOGLOBIN 0.3 % (0.0-1.5); BG OXYGEN SATURATION 97.4 % (92.0-98.5); BG OXYHEMOGLOBIN 96.8 % (94.0-97.0); BG PCO2 42.8 mmHg (35.0-45.0); BG PH 7.466 (7.350-7.450); BG PO2 102.2 mmHg (75.0-100.0); BG SAMPLE SITE RIGHT RADIAL; BG TIDAL VOLUME(mL) 600 mL; BG VENT MODE VENT - A/C; BG VENT RATE 14 set
[2020-01-17] MEDS: METRONIDAZOLE 500 MG PREMIX 100 ML IV SCH ×2 (08:34→21:24)
[2020-01-17] MEDS: NICOTINE 21MG PATCH TD SCH (08:34)
[2020-01-17] MEDS: PANTOPRAZOLE SODIUM 40 MG/VIAL IV SCH (08:34)
[2020-01-17] MEDS ORDERED: HYDROCODONE/ACETAMINOPHEN 5/325MG TABLET PO PRN (10:00)
[2020-01-17] MEDS ORDERED: FUROSEMIDE 40MG/4ML VIAL IVP NR (10:15)
[2020-01-17] MEDS: LORAZEPAM 2MG/ML CPJ IV PRN (11:59)
[2020-01-17] MEDS: METOCLOPRAMIDE HCL 10MG/2ML VIAL IV SCH ×3 (15:41→23:47)
[2020-01-17] MEDS: MICAFUNGIN 100 MG in SODIUM CHLORIDE 0.9% 100 ML IV SCH (15:41)
[2020-01-17] MEDS: MORPHINE SULFATE 2 MG/ML CPJ (NOT FOR IM USE) IV PRN (16:58)
[2020-01-17] MEDS: LEVOFLOXACIN 500MG PREMIX 100 ML IV SCH (17:32)
[2020-01-17] MEDS ORDERED: TOTAL PARENTERAL NUTRITION IV SCH (21:00)
[2020-01-18] VITALS (24 sets, daily range): BP systolic 82–150; BP diastolic 44–69
[2020-01-18] MEDS ORDERED: BLOOD SUGAR DIAGNOSTIC STRIP TEST SCH
[2020-01-18] MEDS: IPRATROPIUM/ALBUTEROL 0.5-3(2.5)MG/3ML NEB HHN SCH ×7 (00:21→20:01)
[2020-01-18] MEDS: ACETYLCYSTEINE 100MG/ML 10% VIAL 4ML INH SCH ×3 (00:21→16:53)
[2020-01-18] MEDS: CEFTAZIDIME PENTAHYDRATE 2 G in DEXT 5% WATER 100 ML IV SCH ×3 (03:36→20:43)
[2020-01-18] MEDS: MORPHINE SULFATE 2 MG/ML CPJ (NOT FOR IM USE) IV PRN ×4 (04:32→22:33)
[2020-01-18 05:56] LABS: BASOPHILS % 0.6 % (0.0-2.0); EOSINOPHILS % 0.4 % (0.0-5.0); HEMATOCRIT. 25.6 % (36.0-48.0); HEMOGLOBIN. 8.2 g/dL (12.0-16.0); LYMPHOCYTES % 8.8 % (20.0-50.0); MEAN CORPUSCULAR HEMOGLOBIN 27.2 pg (28.0-32.0); MEAN CORPUSCULAR VOLUME 84.4 fL (81.0-99.0); MEAN PLATELET VOLUME 9.6 fl (7.4-10.4); MONOCYTES % 4.1 % (2.0-8.0); NEUTROPHILS % 86.1 % (40.0-76.0); PLATELET 347 x1000/uL (130-400); RED BLOOD CELL COUNT 3.04 mill/uL (4.2-5.4); RED CELL DISTRIBUTION WIDTH 16.2 % (11.6-14.6)
[2020-01-18] MEDS: INSULIN LISPRO 100 UNITS/ML SUBCUT SCH ×3 (05:56→18:25)
[2020-01-18] MEDS: BLOOD SUGAR DIAGNOSTIC STRIP TEST SCH ×3 (05:56→17:21)
[2020-01-18 06:03] LABS: CHLORIDE 99 mEq/L (98-107)
[2020-01-18 06:09] LABS: PHOSPHORUS 1.9 mg/dL (2.5-4.9)
[2020-01-18] MEDS: ALPRAZOLAM 0.5 MG TABLET PO SCH ×3 (06:50→21:58)
[2020-01-18 07:59] LABS: BG BASE EXCESS 11.3 mmol/L (-2.0-2.0); BG CARBOXYHEMOGLOBIN 0.3 % (0.5-1.5); BG DEOXYHEMOGLOBIN 2.4 % (0.0-5.0); BG FRACTION INSPIRED OXYGEN 50; BG HCO3 ACT 36.1 mmol/L (22.0-26.0); BG METHEMOGLOBIN 0.1 % (0.0-1.5); BG OXYGEN SATURATION 97.6 % (92.0-98.5); BG OXYHEMOGLOBIN 97.2 % (94.0-97.0); BG PCO2 49.5 mmHg (35.0-45.0); BG PH 7.481 (7.350-7.450); BG PO2 101.5 mmHg (75.0-100.0); BG SAMPLE SITE RIGHT RADIAL; BG TIDAL VOLUME(mL) 600 mL; BG VENT MODE VENT - A/C; BG VENT RATE 14 set
[2020-01-18] MEDS ORDERED: POTASSIUM PHOS,M-BASIC-D-BASIC 30 MMOL in SODIUM CHLORIDE 0.9% 500 ML IV SCH (09:00)
[2020-01-18] MEDS: METRONIDAZOLE 500 MG PREMIX 100 ML IV SCH ×2 (09:15→21:07)
[2020-01-18] MEDS: NICOTINE 21MG PATCH TD SCH (09:16)
[2020-01-18] MEDS: PANTOPRAZOLE SODIUM 40 MG/VIAL IV SCH (09:16)
[2020-01-18] MEDS ORDERED: FUROSEMIDE 40MG/4ML VIAL IVP NR (11:00)
[2020-01-18] MEDS: LORAZEPAM 2MG/ML CPJ IV PRN (11:48)
[2020-01-18] MEDS ORDERED: POTASSIUM CHLORIDE INJ 40 MEQ in DEXT 5% WATER 250 ML IV SCH (16:00)
[2020-01-18] MEDS: MICAFUNGIN 100 MG in SODIUM CHLORIDE 0.9% 100 ML IV SCH (16:26)
[2020-01-18] MEDS: LEVOFLOXACIN 500MG PREMIX 100 ML IV SCH (17:21)
[2020-01-18] MEDS ORDERED: TOTAL PARENTERAL NUTRITION 1,000 ML IV SCH (21:00)
[2020-01-19] VITALS (25 sets, daily range): BP systolic 84–147; BP diastolic 48–80
[2020-01-19] MEDS: ACETYLCYSTEINE 100MG/ML 10% VIAL 4ML INH SCH ×4 (00:22→23:34)
[2020-01-19] MEDS: IPRATROPIUM/ALBUTEROL 0.5-3(2.5)MG/3ML NEB HHN SCH ×7 (00:23→23:34)
[2020-01-19] MEDS: INSULIN LISPRO 100 UNITS/ML SUBCUT SCH ×4 (00:23→17:38)
[2020-01-19] MEDS: BLOOD SUGAR DIAGNOSTIC STRIP TEST SCH ×4 (00:49→18:46)
[2020-01-19] MEDS: CEFTAZIDIME PENTAHYDRATE 2 G in DEXT 5% WATER 100 ML IV SCH ×3 (03:36→22:01)
[2020-01-19 05:19] LABS: CHLORIDE 101 mEq/L (98-107)
[2020-01-19 05:25] LABS: PHOSPHORUS 2.5 mg/dL (2.5-4.9)
[2020-01-19 05:55] LABS: BASOPHILS % 0.8 % (0.0-2.0); EOSINOPHILS % 0.7 % (0.0-5.0); HEMATOCRIT. 25.8 % (36.0-48.0); HEMOGLOBIN. 8.5 g/dL (12.0-16.0); MEAN CORPUSCULAR HEMOGLOBIN 27.5 pg (28.0-32.0); MEAN CORPUSCULAR VOLUME 83.6 fL (81.0-99.0); MEAN PLATELET VOLUME 9.5 fl (7.4-10.4); MONOCYTES % 3.9 % (2.0-8.0); NEUTROPHILS % 86.6 % (40.0-76.0); PLATELET 343 x1000/uL (130-400); RED BLOOD CELL COUNT 3.08 mill/uL (4.2-5.4); RED CELL DISTRIBUTION WIDTH 16.3 % (11.6-14.6)
[2020-01-19] MEDS: ALPRAZOLAM 0.5 MG TABLET PO SCH ×2 (06:12→13:19)
[2020-01-19] MEDS: NICOTINE 21MG PATCH TD SCH (08:33)
[2020-01-19] MEDS: METRONIDAZOLE 500 MG PREMIX 100 ML IV SCH ×2 (08:34→21:21)
[2020-01-19] MEDS: PANTOPRAZOLE SODIUM 40 MG/VIAL IV SCH (08:34)
[2020-01-19] MEDS: LORAZEPAM 2MG/ML CPJ IV PRN (08:34)
[2020-01-19] MEDS ORDERED: KCL 20MEQ/100ML PREMIX 100 ML IV NR (12:00)
[2020-01-19] MEDS: LEVOFLOXACIN 500MG PREMIX 100 ML IV SCH (17:38)
[2020-01-19] MEDS: MICAFUNGIN 100 MG in SODIUM CHLORIDE 0.9% 100 ML IV SCH (17:38)
[2020-01-19] MEDS ORDERED: TOTAL PARENTERAL NUTRITION 1,500 ML IV SCH (21:00)
[2020-01-19] MEDS: MORPHINE SULFATE 2 MG/ML CPJ (NOT FOR IM USE) IV PRN (22:02)
[2020-01-20] VITALS (17 sets, daily range): BP systolic 102–156; BP diastolic 55–84
[2020-01-20] MEDS: BLOOD SUGAR DIAGNOSTIC STRIP TEST SCH ×4 (00:26→17:44)
[2020-01-20] MEDS: INSULIN LISPRO 100 UNITS/ML SUBCUT SCH ×4 (00:34→17:49)
[2020-01-20] MEDS: CEFTAZIDIME PENTAHYDRATE 2 G in DEXT 5% WATER 100 ML IV SCH ×3 (03:14→20:28)
[2020-01-20] MEDS: IPRATROPIUM/ALBUTEROL 0.5-3(2.5)MG/3ML NEB HHN SCH ×5 (03:44→20:37)
[2020-01-20] MEDS: LORAZEPAM 2MG/ML CPJ IV PRN ×2 (03:55→15:11)
[2020-01-20 07:42] LABS: BASOPHILS % 0.6 % (0.0-2.0); EOSINOPHILS % 0.7 % (0.0-5.0); HEMOGLOBIN. 7.7 g/dL (12.0-16.0); LYMPHOCYTES % 7.9 % (20.0-50.0); MEAN CORPUSCULAR HEMOGLOBIN 27.2 pg (28.0-32.0); MEAN CORPUSCULAR VOLUME 84.6 fL (81.0-99.0); MEAN PLATELET VOLUME 9.5 fl (7.4-10.4); NEUTROPHILS % 85.8 % (40.0-76.0); PLATELET 310 x1000/uL (130-400); RED BLOOD CELL COUNT 2.84 mill/uL (4.2-5.4); RED CELL DISTRIBUTION WIDTH 16.5 % (11.6-14.6)
[2020-01-20] MEDS: ACETYLCYSTEINE 100MG/ML 10% VIAL 4ML INH SCH (07:53)
[2020-01-20] MEDS: PANTOPRAZOLE SODIUM 40 MG/VIAL IV SCH (09:12)
[2020-01-20] MEDS: ACETAMINOPHEN 325MG TABLET PO PRN (09:13)
[2020-01-20] MEDS: NICOTINE 21MG PATCH TD SCH (09:13)
[2020-01-20] MEDS: METRONIDAZOLE 500 MG PREMIX 100 ML IV SCH ×2 (09:13→22:05)
[2020-01-20 10:11] LABS: CHLORIDE 100 mEq/L (98-107)
[2020-01-20 10:28] LABS: PHOSPHORUS 2.1 mg/dL (2.5-4.9)
[2020-01-20] MEDS ORDERED: FUROSEMIDE 20MG/2ML VIAL IVP NR (11:15)
[2020-01-20] MEDS ORDERED: SODIUM PHOS,M-BASIC-D-BASIC 30 MM in DEXT 5% WATER 500 ML IV NR (12:00)
[2020-01-20] MEDS: MICAFUNGIN 100 MG in SODIUM CHLORIDE 0.9% 100 ML IV SCH (16:26)
[2020-01-20] MEDS: LEVOFLOXACIN 500MG PREMIX 100 ML IV SCH (17:49)
[2020-01-20] MEDS ORDERED: TOTAL PARENTERAL NUTRITION 1,000 ML IV SCH (21:00)
[2020-01-21] VITALS (12 sets, daily range): BP systolic 99–136; BP diastolic 61–91
[2020-01-21] MEDS: IPRATROPIUM/ALBUTEROL 0.5-3(2.5)MG/3ML NEB HHN SCH ×6 (00:10→20:16)
[2020-01-21] MEDS: BLOOD SUGAR DIAGNOSTIC STRIP TEST SCH ×5 (00:20→23:05)
[2020-01-21] MEDS: INSULIN LISPRO 100 UNITS/ML SUBCUT SCH ×5 (00:20→23:06)
[2020-01-21] MEDS: CEFTAZIDIME PENTAHYDRATE 2 G in DEXT 5% WATER 100 ML IV SCH ×3 (04:08→20:28)
[2020-01-21 06:39] LABS: BASOPHILS % 0.6 % (0.0-2.0); EOSINOPHILS % 0.5 % (0.0-5.0); HEMATOCRIT. 23.4 % (36.0-48.0); HEMOGLOBIN. 7.5 g/dL (12.0-16.0); LYMPHOCYTES % 8.9 % (20.0-50.0); MEAN CORPUSCULAR VOLUME 84.4 fL (81.0-99.0); MEAN PLATELET VOLUME 9.4 fl (7.4-10.4); MONOCYTES % 4.5 % (2.0-8.0); NEUTROPHILS % 85.5 % (40.0-76.0); PLATELET 254 x1000/uL (130-400); RED BLOOD CELL COUNT 2.77 mill/uL (4.2-5.4); RED CELL DISTRIBUTION WIDTH 16.4 % (11.6-14.6)
[2020-01-21 07:24] LABS: CHLORIDE 100 mEq/L (98-107)
[2020-01-21 07:31] LABS: PHOSPHORUS 2.4 mg/dL (2.5-4.9)
[2020-01-21] MEDS: LORAZEPAM 2MG/ML CPJ IV PRN ×3 (09:19→20:28)
[2020-01-21] MEDS ORDERED: SODIUM PHOS,M-BASIC-D-BASIC 15 MM in DEXT 5% WATER 245 ML IV ONE (10:00)
[2020-01-21] MEDS: METRONIDAZOLE 500 MG PREMIX 100 ML IV SCH ×2 (10:44→20:46)
[2020-01-21] MEDS: NICOTINE 21MG PATCH TD SCH (10:44)
[2020-01-21] MEDS: PANTOPRAZOLE SODIUM 40 MG/VIAL IV SCH (10:44)
[2020-01-21] MEDS: MICAFUNGIN 100 MG in SODIUM CHLORIDE 0.9% 100 ML IV SCH (17:33)
[2020-01-21] MEDS: LEVOFLOXACIN 500MG PREMIX 100 ML IV SCH (18:41)
[2020-01-21] MEDS ORDERED: TOTAL PARENTERAL NUTRITION 1,000 ML IV SCH (21:00)
[2020-01-22] VITALS (16 sets, daily range): BP systolic 100–147; BP diastolic 57–131
[2020-01-22] MEDS: MORPHINE SULFATE 2 MG/ML CPJ (NOT FOR IM USE) IV PRN ×3 (00:10→20:20)
[2020-01-22] MEDS: IPRATROPIUM/ALBUTEROL 0.5-3(2.5)MG/3ML NEB HHN SCH ×5 (02:10→20:23)
[2020-01-22] MEDS: LORAZEPAM 2MG/ML CPJ IV PRN ×3 (03:26→17:38)
[2020-01-22] MEDS: CEFTAZIDIME PENTAHYDRATE 2 G in DEXT 5% WATER 100 ML IV SCH ×3 (03:26→20:18)
[2020-01-22] MEDS: BLOOD SUGAR DIAGNOSTIC STRIP TEST SCH ×3 (05:42→17:32)
[2020-01-22] MEDS: INSULIN LISPRO 100 UNITS/ML SUBCUT SCH ×3 (05:55→17:39)
[2020-01-22 07:42] LABS: BASOPHILS % 0.4 % (0.0-2.0); EOSINOPHILS % 1.1 % (0.0-5.0); HEMATOCRIT. 21.9 % (36.0-48.0); LYMPHOCYTES % 9.3 % (20.0-50.0); MEAN CORPUSCULAR HEMOGLOBIN 27.2 pg (28.0-32.0); MEAN CORPUSCULAR VOLUME 85.1 fL (81.0-99.0); MEAN PLATELET VOLUME 9.6 fl (7.4-10.4); NEUTROPHILS % 84.2 % (40.0-76.0); PLATELET 247 x1000/uL (130-400); RED BLOOD CELL COUNT 2.57 mill/uL (4.2-5.4); RED CELL DISTRIBUTION WIDTH 16.9 % (11.6-14.6)
[2020-01-22 08:45] LABS: CHLORIDE 101 mEq/L (98-107)
[2020-01-22 08:57] LABS: PHOSPHORUS 2.5 mg/dL (2.5-4.9)
[2020-01-22] MEDS: METRONIDAZOLE 500 MG PREMIX 100 ML IV SCH ×2 (08:57→20:18)
[2020-01-22] MEDS: PANTOPRAZOLE SODIUM 40 MG/VIAL IV SCH (08:57)
[2020-01-22] MEDS ORDERED: BLOOD SUGAR DIAGNOSTIC STRIP TEST SCH (09:00)
[2020-01-22] MEDS ORDERED: MORPHINE SULFATE 2 MG/ML CPJ (NOT FOR IM USE) IV PRN (10:15)
[2020-01-22] MEDS: NICOTINE 21MG PATCH TD SCH (10:58)
[2020-01-22] MEDS ORDERED: QUETIAPINE FUMARATE 25MG TABLET GT SCH (11:30)
[2020-01-22] MEDS ORDERED: FUROSEMIDE 40MG/4ML VIAL IVP NR (14:00)
[2020-01-22] MEDS ORDERED: MORPHINE SULFATE 2 MG/ML CPJ (NOT FOR IM USE) IV NR (14:00)
[2020-01-22 14:21] LABS: BG BASE EXCESS 6.9 mmol/L (-2.0-2.0); BG CARBOXYHEMOGLOBIN 0.6 % (0.5-1.5); BG DEOXYHEMOGLOBIN 3.2 % (0.0-5.0); BG FRACTION INSPIRED OXYGEN 35; BG HCO3 ACT 30.7 mmol/L (22.0-26.0); BG METHEMOGLOBIN 0.3 % (0.0-1.5); BG OXYGEN SATURATION 96.8 % (92.0-98.5); BG OXYHEMOGLOBIN 95.9 % (94.0-97.0); BG PCO2 40.7 mmHg (35.0-45.0); BG PH 7.496 (7.350-7.450); BG PO2 88.7 mmHg (75.0-100.0); BG SAMPLE SITE LEFT RADIAL; BG TIDAL VOLUME(mL) 600 mL; BG TOTAL HEMOGLOBIN 9.9 g/dL (12.0-18.0); BG VENT MODE VENT - A/C; BG VENT RATE 12 set
[2020-01-22] MEDS: MICAFUNGIN 100 MG in SODIUM CHLORIDE 0.9% 100 ML IV SCH (16:46)
[2020-01-22] MEDS: LEVOFLOXACIN 500MG PREMIX 100 ML IV SCH (17:04)
[2020-01-22] MEDS ORDERED: TOTAL PARENTERAL NUTRITION 1,000 ML IV SCH (18:00)
[2020-01-22] MEDS ORDERED: QUETIAPINE FUMARATE 25MG TABLET GT ONE (21:00)
[2020-01-23] VITALS (12 sets, daily range): BP systolic 92–133; BP diastolic 47–76
[2020-01-23] MEDS: IPRATROPIUM/ALBUTEROL 0.5-3(2.5)MG/3ML NEB HHN SCH ×6 (00:20→20:34)
[2020-01-23] MEDS: LORAZEPAM 2MG/ML CPJ IV PRN ×4 (01:29→20:45)
[2020-01-23] MEDS: MORPHINE SULFATE 2 MG/ML CPJ (NOT FOR IM USE) IV PRN ×2 (02:07→07:15)
[2020-01-23] MEDS: CEFTAZIDIME PENTAHYDRATE 2 G in DEXT 5% WATER 100 ML IV SCH ×3 (04:10→20:24)
[2020-01-23] MEDS: ACETAMINOPHEN 325MG TABLET PO PRN (04:11)
[2020-01-23] MEDS: BLOOD SUGAR DIAGNOSTIC STRIP TEST SCH ×4 (05:15→17:59)
[2020-01-23] MEDS: INSULIN LISPRO 100 UNITS/ML SUBCUT SCH ×4 (05:22→17:59)
[2020-01-23 07:20] LABS: BASOPHILS % 0.5 % (0.0-2.0); EOSINOPHILS % 1.9 % (0.0-5.0); HEMATOCRIT. 24.2 % (36.0-48.0); HEMOGLOBIN. 7.9 g/dL (12.0-16.0); LYMPHOCYTES % 10.4 % (20.0-50.0); MEAN CORPUSCULAR HEMOGLOBIN 27.8 pg (28.0-32.0); MEAN CORPUSCULAR VOLUME 85.1 fL (81.0-99.0); MEAN PLATELET VOLUME 9.6 fl (7.4-10.4); MONOCYTES % 5.7 % (2.0-8.0); NEUTROPHILS % 81.5 % (40.0-76.0); PLATELET 244 x1000/uL (130-400); RED BLOOD CELL COUNT 2.85 mill/uL (4.2-5.4); RED CELL DISTRIBUTION WIDTH 16.8 % (11.6-14.6)
[2020-01-23] MEDS ORDERED: QUETIAPINE FUMARATE 25MG TABLET GT SCH (09:00)
[2020-01-23] MEDS: NICOTINE 21MG PATCH TD SCH (09:26)
[2020-01-23] MEDS: PANTOPRAZOLE SODIUM 40 MG/VIAL IV SCH (09:26)
[2020-01-23] MEDS: METRONIDAZOLE 500 MG PREMIX 100 ML IV SCH ×2 (09:29→20:24)
[2020-01-23 13:31] LABS: CHLORIDE 102 mEq/L (98-107)
[2020-01-23 13:40] LABS: PHOSPHORUS 2.5 mg/dL (2.5-4.9)
[2020-01-23] MEDS: MORPHINE SULFATE 4 MG/ML CPJ (NOT FOR IM USE) IV PRN (16:05)
[2020-01-23] MEDS: MICAFUNGIN 100 MG in SODIUM CHLORIDE 0.9% 100 ML IV SCH (16:37)
[2020-01-23] MEDS: LEVOFLOXACIN 500MG PREMIX 100 ML IV SCH (18:22)
[2020-01-23] MEDS: QUETIAPINE FUMARATE 25MG TABLET GT SCH (22:25)
[2020-01-24] VITALS (45 sets, daily range): BP systolic 80–177; BP diastolic 41–100
[2020-01-24] MEDS: METOCLOPRAMIDE HCL 10MG/2ML VIAL IV SCH ×4 (00:15→18:16)
[2020-01-24] MEDS: BLOOD SUGAR DIAGNOSTIC STRIP TEST SCH ×4 (00:15→18:27)
[2020-01-24] MEDS: MORPHINE SULFATE 4 MG/ML CPJ (NOT FOR IM USE) IV PRN ×2 (00:23→18:30)
[2020-01-24] MEDS: IPRATROPIUM/ALBUTEROL 0.5-3(2.5)MG/3ML NEB HHN SCH ×5 (00:54→20:35)
[2020-01-24] MEDS: HALOPERIDOL LACTATE 5MG/ML VIAL IM PRN ×2 (03:23→22:49)
[2020-01-24] MEDS: CEFTAZIDIME PENTAHYDRATE 2 G in DEXT 5% WATER 100 ML IV SCH ×2 (03:23→12:18)
[2020-01-24] MEDS: INSULIN LISPRO 100 UNITS/ML SUBCUT SCH ×3 (05:28→18:00)
[2020-01-24] MEDS: LORAZEPAM 2MG/ML CPJ IV PRN ×3 (05:29→23:50)
[2020-01-24] MEDS: ACETAMINOPHEN 325MG TABLET PO PRN ×2 (06:21→12:20)
[2020-01-24] MEDS: QUETIAPINE FUMARATE 25MG TABLET GT SCH ×2 (09:44→18:15)
[2020-01-24] MEDS: PANTOPRAZOLE SODIUM 40 MG/VIAL IV SCH (09:44)
[2020-01-24] MEDS: METRONIDAZOLE 500 MG PREMIX 100 ML IV SCH (09:44)
[2020-01-24] MEDS: NICOTINE 21MG PATCH TD SCH (09:44)
[2020-01-24 10:01] LABS: BASOPHILS % 0.7 % (0.0-2.0); EOSINOPHILS % 1.8 % (0.0-5.0); HEMATOCRIT. 24.4 % (36.0-48.0); HEMOGLOBIN. 7.8 g/dL (12.0-16.0); LYMPHOCYTES % 9.7 % (20.0-50.0); MEAN CORPUSCULAR HEMOGLOBIN 27.5 pg (28.0-32.0); MEAN CORPUSCULAR VOLUME 85.9 fL (81.0-99.0); MEAN PLATELET VOLUME 9.5 fl (7.4-10.4); MONOCYTES % 5.5 % (2.0-8.0); NEUTROPHILS % 82.3 % (40.0-76.0); PLATELET 250 x1000/uL (130-400); RED BLOOD CELL COUNT 2.83 mill/uL (4.2-5.4); RED CELL DISTRIBUTION WIDTH 17.6 % (11.6-14.6)
[2020-01-24 10:16] LABS: PHOSPHORUS 3.5 mg/dL (2.5-4.9)
[2020-01-24 10:38] LABS: CHLORIDE 105 mEq/L (98-107)
[2020-01-24] MEDS ORDERED: NOREPINEPHRINE 8 MG in DEXT 5% WATER 242 ML IV PRN (14:45)
[2020-01-24 15:41] LABS: BG BASE EXCESS 3.3 mmol/L (-2.0-2.0); BG CARBOXYHEMOGLOBIN 0.9 % (0.5-1.5); BG DEOXYHEMOGLOBIN 5.6 % (0.0-5.0); BG FRACTION INSPIRED OXYGEN 35; BG HCO3 ACT 27.9 mmol/L (22.0-26.0); BG OXYGEN SATURATION 94.3 % (92.0-98.5); BG OXYHEMOGLOBIN 93.5 % (94.0-97.0); BG PCO2 42.9 mmHg (35.0-45.0); BG PH 7.431 (7.350-7.450); BG PO2 72.3 mmHg (75.0-100.0); BG SAMPLE SITE RIGHT RADIAL; BG TIDAL VOLUME(mL) 600 mL; BG TOTAL HEMOGLOBIN 9.4 g/dL (12.0-18.0); BG VENT MODE VENT - A/C; BG VENT RATE 12 set
[2020-01-24] MEDS ORDERED: ALBUMIN HUMAN 25GM/500ML (5%) IV NR (16:00)
[2020-01-24] MEDS: MICAFUNGIN 100 MG in SODIUM CHLORIDE 0.9% 100 ML IV SCH (16:26)
[2020-01-24] MEDS ORDERED: AMIKACIN SULFATE 500 MG in SODIUM CHLORIDE 0.9% 100 ML IV SCH (18:00)
[2020-01-24] MEDS: MEROPENEM 1,000 MG in SODIUM CHLORIDE 0.9% 100 ML IV SCH (20:34)
[2020-01-25] VITALS (73 sets, daily range): BP systolic 87–174; BP diastolic 38–98
[2020-01-25] MEDS: IPRATROPIUM/ALBUTEROL 0.5-3(2.5)MG/3ML NEB HHN SCH ×6 (00:05→20:26)
[2020-01-25] MEDS: METOCLOPRAMIDE HCL 10MG/2ML VIAL IV SCH ×4 (00:09→17:30)
[2020-01-25] MEDS: ACETAMINOPHEN 325MG TABLET PO PRN ×3 (00:10→16:31)
[2020-01-25] MEDS: BLOOD SUGAR DIAGNOSTIC STRIP TEST SCH ×5 (00:17→23:55)
[2020-01-25] MEDS: MORPHINE SULFATE 4 MG/ML CPJ (NOT FOR IM USE) IV PRN ×4 (05:06→21:27)
[2020-01-25] MEDS: MEROPENEM 1,000 MG in SODIUM CHLORIDE 0.9% 100 ML IV SCH ×3 (05:08→20:16)
[2020-01-25 05:43] LABS: BASOPHILS % 0.5 % (0.0-2.0); EOSINOPHILS % 1.8 % (0.0-5.0); HEMOGLOBIN. 8.4 g/dL (12.0-16.0); LYMPHOCYTES % 8.3 % (20.0-50.0); MEAN CORPUSCULAR HEMOGLOBIN 27.8 pg (28.0-32.0); MEAN CORPUSCULAR VOLUME 85.9 fL (81.0-99.0); MEAN PLATELET VOLUME 9.3 fl (7.4-10.4); NEUTROPHILS % 84.4 % (40.0-76.0); PLATELET 284 x1000/uL (130-400); RED BLOOD CELL COUNT 3.03 mill/uL (4.2-5.4); RED CELL DISTRIBUTION WIDTH 17.8 % (11.6-14.6)
[2020-01-25 05:50] LABS: CHLORIDE 106 mEq/L (98-107)
[2020-01-25 05:58] LABS: PHOSPHORUS 3.1 mg/dL (2.5-4.9)
[2020-01-25] MEDS: INSULIN LISPRO 100 UNITS/ML SUBCUT SCH ×5 (06:00→23:56)
[2020-01-25] MEDS: LORAZEPAM 2MG/ML CPJ IV PRN ×3 (07:56→20:16)
[2020-01-25] MEDS: QUETIAPINE FUMARATE 25MG TABLET GT SCH ×2 (09:13→17:30)
[2020-01-25] MEDS: PANTOPRAZOLE SODIUM 40 MG/VIAL IV SCH (09:13)
[2020-01-25] MEDS: NICOTINE 21MG PATCH TD SCH (09:13)
[2020-01-25] MEDS: ACETYLCYSTEINE 100MG/ML 10% VIAL 4ML INH SCH ×2 (12:36→20:26)
[2020-01-25] MEDS: MICAFUNGIN 100 MG in SODIUM CHLORIDE 0.9% 100 ML IV SCH (15:33)
[2020-01-26] VITALS (32 sets, daily range): BP systolic 89–184; BP diastolic 49–113
[2020-01-26] MEDS: IPRATROPIUM/ALBUTEROL 0.5-3(2.5)MG/3ML NEB HHN SCH ×6 (00:26→20:14)
[2020-01-26] MEDS: MORPHINE SULFATE 4 MG/ML CPJ (NOT FOR IM USE) IV PRN ×5 (01:07→17:10)
[2020-01-26] MEDS: LORAZEPAM 2MG/ML CPJ IV PRN ×3 (03:11→23:13)
[2020-01-26] MEDS: MEROPENEM 1,000 MG in SODIUM CHLORIDE 0.9% 100 ML IV SCH ×3 (03:13→20:05)
[2020-01-26] MEDS: HALOPERIDOL LACTATE 5MG/ML VIAL IM PRN ×2 (04:40→19:56)
[2020-01-26] MEDS: INSULIN LISPRO 100 UNITS/ML SUBCUT SCH ×3 (05:53→17:02)
[2020-01-26] MEDS: BLOOD SUGAR DIAGNOSTIC STRIP TEST SCH ×3 (05:53→17:01)
[2020-01-26] MEDS: METOCLOPRAMIDE HCL 10MG/2ML VIAL IV SCH ×4 (05:55→17:09)
[2020-01-26 06:01] LABS: BASOPHILS % 0.5 % (0.0-2.0); EOSINOPHILS % 2.3 % (0.0-5.0); HEMATOCRIT. 26.1 % (36.0-48.0); HEMOGLOBIN. 8.4 g/dL (12.0-16.0); LYMPHOCYTES % 9.2 % (20.0-50.0); MEAN CORPUSCULAR HEMOGLOBIN 27.9 pg (28.0-32.0); MEAN CORPUSCULAR VOLUME 86.6 fL (81.0-99.0); MEAN PLATELET VOLUME 9.5 fl (7.4-10.4); MONOCYTES % 4.6 % (2.0-8.0); NEUTROPHILS % 83.4 % (40.0-76.0); PLATELET 303 x1000/uL (130-400); RED BLOOD CELL COUNT 3.02 mill/uL (4.2-5.4); RED CELL DISTRIBUTION WIDTH 17.9 % (11.6-14.6)
[2020-01-26 06:04] LABS: CHLORIDE 105 mEq/L (98-107)
[2020-01-26] MEDS: ACETYLCYSTEINE 100MG/ML 10% VIAL 4ML INH SCH ×2 (08:22→16:35)
[2020-01-26 08:35] LABS: BG BASE EXCESS 6.2 mmol/L (-2.0-2.0); BG CARBOXYHEMOGLOBIN 1.2 % (0.5-1.5); BG DEOXYHEMOGLOBIN 5.1 % (0.0-5.0); BG FRACTION INSPIRED OXYGEN 35; BG HCO3 ACT 30.2 mmol/L (22.0-26.0); BG METHEMOGLOBIN 0.3 % (0.0-1.5); BG OXYGEN SATURATION 94.8 % (92.0-98.5); BG OXYHEMOGLOBIN 93.4 % (94.0-97.0); BG PCO2 41.4 mmHg (35.0-45.0); BG PH 7.481 (7.350-7.450); BG PO2 74.1 mmHg (75.0-100.0); BG SAMPLE SITE RIGHT RADIAL; BG TIDAL VOLUME(mL) 600 mL; BG TOTAL HEMOGLOBIN 8.3 g/dL (12.0-18.0); BG VENT MODE VENT - A/C; BG VENT RATE 12 set
[2020-01-26] MEDS: PANTOPRAZOLE SODIUM 40 MG/VIAL IV SCH (09:08)
[2020-01-26] MEDS: NICOTINE 21MG PATCH TD SCH (09:08)
[2020-01-26] MEDS: QUETIAPINE FUMARATE 25MG TABLET GT SCH ×2 (09:08→17:09)
[2020-01-26] MEDS: MICAFUNGIN 100 MG in SODIUM CHLORIDE 0.9% 100 ML IV SCH (16:36)
[2020-01-27] VITALS (48 sets, daily range): BP systolic 85–169; BP diastolic 45–128
[2020-01-27] MEDS: IPRATROPIUM/ALBUTEROL 0.5-3(2.5)MG/3ML NEB HHN SCH ×6 (00:09→20:26)
[2020-01-27] MEDS: ACETYLCYSTEINE 100MG/ML 10% VIAL 4ML INH SCH ×3 (00:09→16:17)
[2020-01-27] MEDS: MORPHINE SULFATE 4 MG/ML CPJ (NOT FOR IM USE) IV PRN ×3 (01:12→19:49)
[2020-01-27] MEDS: METOCLOPRAMIDE HCL 10MG/2ML VIAL IV SCH ×4 (01:22→17:06)
[2020-01-27] MEDS: MEROPENEM 1,000 MG in SODIUM CHLORIDE 0.9% 100 ML IV SCH ×3 (04:16→19:47)
[2020-01-27] MEDS: HALOPERIDOL LACTATE 5MG/ML VIAL IM PRN ×2 (04:22→15:59)
[2020-01-27] MEDS: ACETAMINOPHEN 325MG TABLET PO PRN (04:22)
[2020-01-27] MEDS: BLOOD SUGAR DIAGNOSTIC STRIP TEST SCH ×4 (06:00→17:52)
[2020-01-27] MEDS: INSULIN LISPRO 100 UNITS/ML SUBCUT SCH ×4 (06:00→17:53)
[2020-01-27 07:37] LABS: BG CARBOXYHEMOGLOBIN 0.7 % (0.5-1.5); BG DEOXYHEMOGLOBIN 3.8 % (0.0-5.0); BG HCO3 ACT 28.2 mmol/L (22.0-26.0); BG METHEMOGLOBIN 0.1 % (0.0-1.5); BG OXYGEN SATURATION 96.2 % (92.0-98.5); BG OXYHEMOGLOBIN 95.4 % (94.0-97.0); BG PCO2 40.8 mmHg (35.0-45.0); BG PH 7.458 (7.350-7.450); BG PO2 83.1 mmHg (75.0-100.0); BG SAMPLE SITE RIGHT RADIAL; BG TIDAL VOLUME(mL) 600 mL; BG VENT MODE VENT - A/C; BG VENT RATE 12 set
[2020-01-27] MEDS: QUETIAPINE FUMARATE 25MG TABLET GT SCH ×2 (09:56→16:54)
[2020-01-27] MEDS: PANTOPRAZOLE SODIUM 40 MG/VIAL IV SCH (09:56)
[2020-01-27] MEDS: NICOTINE 21MG PATCH TD SCH (09:57)
[2020-01-27 10:10] LABS: BASOPHILS % 0.6 % (0.0-2.0); EOSINOPHILS % 2.9 % (0.0-5.0); HEMATOCRIT. 24.5 % (36.0-48.0); HEMOGLOBIN. 7.9 g/dL (12.0-16.0); LYMPHOCYTES % 14.1 % (20.0-50.0); MEAN CORPUSCULAR HEMOGLOBIN 27.6 pg (28.0-32.0); MEAN CORPUSCULAR VOLUME 85.9 fL (81.0-99.0); MEAN PLATELET VOLUME 8.8 fl (7.4-10.4); MONOCYTES % 7.1 % (2.0-8.0); NEUTROPHILS % 75.3 % (40.0-76.0); PLATELET 313 x1000/uL (130-400); RED BLOOD CELL COUNT 2.85 mill/uL (4.2-5.4); RED CELL DISTRIBUTION WIDTH 18.3 % (11.6-14.6)
[2020-01-27 10:24] LABS: CHLORIDE 107 mEq/L (98-107)
[2020-01-27] MEDS: LORAZEPAM 2MG/ML CPJ IV PRN ×2 (14:29→22:27)
[2020-01-27] MEDS: MICAFUNGIN 100 MG in SODIUM CHLORIDE 0.9% 100 ML IV SCH (16:55)
[2020-01-27] MEDS: METHYLPREDNISOLONE SOD SUCC 125 MG/2 ML VIAL IV SCH (17:50)
[2020-01-28] VITALS (58 sets, daily range): BP systolic 86–163; BP diastolic 33–117
[2020-01-28] MEDS: ACETYLCYSTEINE 100MG/ML 10% VIAL 4ML INH SCH ×3 (00:22→16:00)
[2020-01-28] MEDS: IPRATROPIUM/ALBUTEROL 0.5-3(2.5)MG/3ML NEB HHN SCH ×6 (00:23→20:41)
[2020-01-28] MEDS: METOCLOPRAMIDE HCL 10MG/2ML VIAL IV SCH ×5 (00:39→23:47)
[2020-01-28] MEDS: METHYLPREDNISOLONE SOD SUCC 125 MG/2 ML VIAL IV SCH ×3 (00:40→12:12)
[2020-01-28] MEDS: INSULIN LISPRO 100 UNITS/ML SUBCUT SCH ×5 (00:43→23:36)
[2020-01-28] MEDS: MEROPENEM 1,000 MG in SODIUM CHLORIDE 0.9% 100 ML IV SCH ×3 (04:09→20:15)
[2020-01-28] MEDS: MORPHINE SULFATE 4 MG/ML CPJ (NOT FOR IM USE) IV PRN ×2 (04:12→15:29)
[2020-01-28] MEDS: BLOOD SUGAR DIAGNOSTIC STRIP TEST SCH ×5 (06:00→23:30)
[2020-01-28 06:06] LABS: CHLORIDE 107 mEq/L (98-107)
[2020-01-28 06:08] LABS: INR 1.1; PARTIAL THROMBOPLASTIN TIME 27.8 sec (23.4-31.0); PROTHROMBIN TIME 11.5 sec (9.6-11.0)
[2020-01-28 06:20] LABS: BASOPHILS % 0.6 % (0.0-2.0); HEMATOCRIT. 25.6 % (36.0-48.0); HEMOGLOBIN. 8.1 g/dL (12.0-16.0); LYMPHOCYTES % 8.4 % (20.0-50.0); MEAN CORPUSCULAR HEMOGLOBIN 27.4 pg (28.0-32.0); MEAN CORPUSCULAR VOLUME 86.2 fL (81.0-99.0); MEAN PLATELET VOLUME 9.3 fl (7.4-10.4); PLATELET 350 x1000/uL (130-400); RED BLOOD CELL COUNT 2.97 mill/uL (4.2-5.4); RED CELL DISTRIBUTION WIDTH 18.3 % (11.6-14.6)
[2020-01-28 07:25] LABS: BG BASE EXCESS 5.2 mmol/L (-2.0-2.0); BG DEOXYHEMOGLOBIN 4.3 % (0.0-5.0); BG METHEMOGLOBIN 0.1 % (0.0-1.5); BG OXYGEN SATURATION 95.7 % (92.0-98.5); BG OXYHEMOGLOBIN 94.6 % (94.0-97.0); BG PCO2 39.3 mmHg (35.0-45.0); BG PH 7.486 (7.350-7.450); BG PO2 76.7 mmHg (75.0-100.0); BG SAMPLE SITE RIGHT BRACHIAL; BG TIDAL VOLUME(mL) 600 mL; BG TOTAL HEMOGLOBIN 8.8 g/dL (12.0-18.0); BG VENT MODE VENT - A/C; BG VENT RATE 12 set
[2020-01-28] MEDS: NICOTINE 21MG PATCH TD SCH (08:00)
[2020-01-28] MEDS: PANTOPRAZOLE SODIUM 40 MG/VIAL IV SCH (08:00)
[2020-01-28] MEDS: QUETIAPINE FUMARATE 25MG TABLET GT SCH ×2 (08:00→18:14)
[2020-01-28] MEDS ORDERED: BACTERIOSTATIC SODIUM CHLORIDE 0.9% 30ML VIAL IJ ONE (09:54)
[2020-01-28] MEDS: LORAZEPAM 2MG/ML CPJ IV PRN (11:01)
[2020-01-28] MEDS ORDERED: CEFAZOLIN SODIUM 1000MG/VIAL IV ONE (11:30)
[2020-01-28] MEDS ORDERED: CEFAZOLIN 1000MG PREMIX 50 ML IV NR (12:30)
[2020-01-28] MEDS: HALOPERIDOL LACTATE 5MG/ML VIAL IM PRN ×2 (13:06→23:24)
[2020-01-28] MEDS ORDERED: MIDAZOLAM HCL 5 MG/5 ML VIAL ONE (16:52)
[2020-01-28] MEDS ORDERED: FENTANYL CITRATE/PF 50MCG/ML 2ML VIAL ONE (17:06)
[2020-01-28] MEDS ORDERED: MIDAZOLAM HCL 5 MG/5 ML VIAL IV PRN (17:21)
[2020-01-28] MEDS ORDERED: FENTANYL CITRATE/PF 50MCG/ML 2ML VIAL IV PRN (17:22)
[2020-01-28] MEDS ORDERED: DIATR MEGLU/DIATRIZOATE SOLN 30ML PO NR (18:00)
[2020-01-28] MEDS ORDERED: MICAFUNGIN 100 MG in SODIUM CHLORIDE 0.9% 100 ML IV SCH (20:00)
[2020-01-28] MEDS ORDERED: IOHEXOL-300 100 ML BOTTLE ONE (23:13)
[2020-01-29] VITALS (62 sets, daily range): BP systolic 90–175; BP diastolic 40–94
[2020-01-29] MEDS: ACETYLCYSTEINE 100MG/ML 10% VIAL 4ML INH SCH ×3 (00:22→16:31)
[2020-01-29] MEDS: IPRATROPIUM/ALBUTEROL 0.5-3(2.5)MG/3ML NEB HHN SCH ×6 (00:22→20:56)
[2020-01-29] MEDS: LORAZEPAM 2MG/ML CPJ IV PRN ×4 (00:49→17:53)
[2020-01-29] MEDS: SODIUM CHLORIDE 0.45% 1,000 ML IV SCH ×2 (03:00→16:20)
[2020-01-29] MEDS: MEROPENEM 1,000 MG in SODIUM CHLORIDE 0.9% 100 ML IV SCH (04:15)
[2020-01-29] MEDS: MORPHINE SULFATE 4 MG/ML CPJ (NOT FOR IM USE) IV PRN ×4 (05:40→22:46)
[2020-01-29 05:47] LABS: HEMATOCRIT. 23.6 % (36.0-48.0); HEMOGLOBIN. 7.7 g/dL (12.0-16.0); MEAN CORPUSCULAR HEMOGLOBIN 28.5 pg (28.0-32.0); MEAN CORPUSCULAR VOLUME 87.2 fL (81.0-99.0); MEAN PLATELET VOLUME 9.1 fl (7.4-10.4); PLATELET 354 x1000/uL (130-400); PROTHROMBIN TIME 11.2 sec (9.6-11.0); RED CELL DISTRIBUTION WIDTH 18.2 % (11.6-14.6)
[2020-01-29 05:53] LABS: CHLORIDE 108 mEq/L (98-107)
[2020-01-29] MEDS: INSULIN LISPRO 100 UNITS/ML SUBCUT SCH ×3 (06:00→17:54)
[2020-01-29] MEDS: METOCLOPRAMIDE HCL 10MG/2ML VIAL IV SCH ×3 (06:05→17:54)
[2020-01-29] MEDS: BLOOD SUGAR DIAGNOSTIC STRIP TEST SCH ×3 (06:06→17:54)
[2020-01-29 08:30] LABS: PLATELET ESTIMATE NORMAL
[2020-01-29 08:44] LABS: BG BASE EXCESS 5.2 mmol/L (-2.0-2.0); BG CARBOXYHEMOGLOBIN 0.3 % (0.5-1.5); BG DEOXYHEMOGLOBIN 7.7 % (0.0-5.0); BG FRACTION INSPIRED OXYGEN 35; BG HCO3 ACT 30.1 mmol/L (22.0-26.0); BG METHEMOGLOBIN 0.3 % (0.0-1.5); BG OXYGEN SATURATION 92.3 % (92.0-98.5); BG OXYHEMOGLOBIN 91.7 % (94.0-97.0); BG PCO2 45.8 mmHg (35.0-45.0); BG PH 7.435 (7.350-7.450); BG PO2 65.2 mmHg (75.0-100.0); BG SAMPLE SITE RIGHT RADIAL; BG TIDAL VOLUME(mL) 600 mL; BG TOTAL HEMOGLOBIN 8.7 g/dL (12.0-18.0); BG VENT MODE VENT - A/C; BG VENT RATE 12 set
[2020-01-29] MEDS: NICOTINE 21MG PATCH TD SCH (08:52)
[2020-01-29] MEDS: ACETAMINOPHEN 325MG TABLET PO PRN ×2 (08:52→17:53)
[2020-01-29] MEDS: QUETIAPINE FUMARATE 25MG TABLET GT SCH (08:52)
[2020-01-29] MEDS: PANTOPRAZOLE SODIUM 40 MG/VIAL IV SCH (08:52)
[2020-01-29] MEDS: RISPERIDONE 0.5MG TABLET PO SCH (21:13)
[2020-01-29 21:48] LABS: HEMATOCRIT 25.9 % (36.0-48.0); HEMOGLOBIN 8.1 g/dL (12.0-16.0)
[2020-01-29] MEDS: DIPHENHYDRAMINE 50MG CAPSULE PO PRN (22:00)
[2020-01-30] VITALS (80 sets, daily range): BP systolic 92–156; BP diastolic 49–98
[2020-01-30] MEDS: METOCLOPRAMIDE HCL 10MG/2ML VIAL IV SCH ×5 (00:18→23:44)
[2020-01-30] MEDS: ACETYLCYSTEINE 100MG/ML 10% VIAL 4ML INH SCH ×2 (00:41→08:43)
[2020-01-30] MEDS: IPRATROPIUM/ALBUTEROL 0.5-3(2.5)MG/3ML NEB HHN SCH ×6 (00:42→20:56)
[2020-01-30] MEDS: LORAZEPAM 2MG/ML CPJ IV PRN ×3 (01:30→17:19)
[2020-01-30] MEDS: MORPHINE SULFATE 4 MG/ML CPJ (NOT FOR IM USE) IV PRN ×3 (05:29→20:34)
[2020-01-30] MEDS: SODIUM CHLORIDE 0.45% 1,000 ML IV SCH ×2 (05:35→19:53)
[2020-01-30 05:59] LABS: CHLORIDE 109 mEq/L (98-107)
[2020-01-30] MEDS: INSULIN LISPRO 100 UNITS/ML SUBCUT SCH ×5 (06:00→23:37)
[2020-01-30 06:09] LABS: BASOPHILS % 0.8 % (0.0-2.0); EOSINOPHILS % 3.4 % (0.0-5.0); HEMATOCRIT. 25.6 % (36.0-48.0); HEMOGLOBIN. 8.2 g/dL (12.0-16.0); LYMPHOCYTES % 8.7 % (20.0-50.0); MEAN CORPUSCULAR VOLUME 87.9 fL (81.0-99.0); MEAN PLATELET VOLUME 9.1 fl (7.4-10.4); MONOCYTES % 4.3 % (2.0-8.0); NEUTROPHILS % 82.8 % (40.0-76.0); PLATELET 308 x1000/uL (130-400); RED BLOOD CELL COUNT 2.92 mill/uL (4.2-5.4); RED CELL DISTRIBUTION WIDTH 18.3 % (11.6-14.6)
[2020-01-30] MEDS: BLOOD SUGAR DIAGNOSTIC STRIP TEST SCH ×5 (06:17→23:33)
[2020-01-30] MEDS: DIPHENHYDRAMINE 50MG CAPSULE PO PRN ×2 (07:32→15:30)
[2020-01-30] MEDS: HALOPERIDOL LACTATE 5MG/ML VIAL IM PRN (07:32)
[2020-01-30 07:53] LABS: BG BASE EXCESS 4.9 mmol/L (-2.0-2.0); BG CARBOXYHEMOGLOBIN 0.6 % (0.5-1.5); BG FRACTION INSPIRED OXYGEN 40; BG HCO3 ACT 29.4 mmol/L (22.0-26.0); BG METHEMOGLOBIN 0.3 % (0.0-1.5); BG OXYHEMOGLOBIN 95.1 % (94.0-97.0); BG PCO2 43.2 mmHg (35.0-45.0); BG PO2 82.4 mmHg (75.0-100.0); BG SAMPLE SITE RIGHT RADIAL; BG TIDAL VOLUME(mL) 600 mL; BG TOTAL HEMOGLOBIN 9.3 g/dL (12.0-18.0); BG VENT MODE VENT - A/C; BG VENT RATE 12 set
[2020-01-30] MEDS: NICOTINE 21MG PATCH TD SCH ×2 (09:00→09:47)
[2020-01-30] MEDS: RISPERIDONE 0.5MG TABLET PO SCH ×2 (09:47→20:51)
[2020-01-30] MEDS: PANTOPRAZOLE SODIUM 40 MG/VIAL IV SCH (09:47)
[2020-01-30] MEDS ORDERED: CEFAZOLIN 1000MG PREMIX 50 ML IV SCH (11:30)
[2020-01-30] MEDS ORDERED: FENTANYL CITRATE/PF 50MCG/ML 2ML VIAL IV ONE (13:31)
[2020-01-30] MEDS ORDERED: MIDAZOLAM HCL 5 MG/5 ML VIAL IV ONE (13:32)
[2020-01-30] MEDS ORDERED: MIDAZOLAM HCL 5 MG/5 ML VIAL ONE (14:30)
[2020-01-30] MEDS ORDERED: FENTANYL CITRATE/PF 50MCG/ML 2ML VIAL ONE (14:31)
[2020-01-31] VITALS (14 sets, daily range): BP systolic 95–138; BP diastolic 55–87
[2020-01-31] MEDS: LORAZEPAM 2MG/ML CPJ IV PRN ×2 (00:44→12:09)
[2020-01-31] MEDS: IPRATROPIUM/ALBUTEROL 0.5-3(2.5)MG/3ML NEB HHN SCH ×6 (00:52→20:46)
[2020-01-31] MEDS: MORPHINE SULFATE 4 MG/ML CPJ (NOT FOR IM USE) IV PRN (05:31)
[2020-01-31] MEDS: METOCLOPRAMIDE HCL 10MG/2ML VIAL IV SCH ×4 (05:31→23:03)
[2020-01-31] MEDS: INSULIN LISPRO 100 UNITS/ML SUBCUT SCH ×4 (06:00→23:14)
[2020-01-31] MEDS: BLOOD SUGAR DIAGNOSTIC STRIP TEST SCH ×4 (06:35→23:03)
[2020-01-31 08:04] LABS: BASOPHILS % 0.6 % (0.0-2.0); EOSINOPHILS % 3.4 % (0.0-5.0); HEMATOCRIT. 28.6 % (36.0-48.0); HEMOGLOBIN. 9.3 g/dL (12.0-16.0); LYMPHOCYTES % 9.8 % (20.0-50.0); MEAN CORPUSCULAR HEMOGLOBIN 28.3 pg (28.0-32.0); MEAN CORPUSCULAR VOLUME 87.3 fL (81.0-99.0); MEAN PLATELET VOLUME 8.9 fl (7.4-10.4); MONOCYTES % 3.1 % (2.0-8.0); NEUTROPHILS % 83.1 % (40.0-76.0); PLATELET 298 x1000/uL (130-400); RED BLOOD CELL COUNT 3.27 mill/uL (4.2-5.4); RED CELL DISTRIBUTION WIDTH 17.5 % (11.6-14.6)
[2020-01-31 08:10] LABS: CHLORIDE 105 mEq/L (98-107)
[2020-01-31] MEDS: PANTOPRAZOLE SODIUM 40 MG/VIAL IV SCH (09:08)
[2020-01-31] MEDS: NICOTINE 21MG PATCH TD SCH (09:09)
[2020-01-31] MEDS: RISPERIDONE 0.5MG TABLET PO SCH ×2 (09:09→22:39)
[2020-01-31] MEDS: SODIUM CHLORIDE 0.45% 1,000 ML IV SCH ×2 (12:09→22:40)
[2020-01-31] MEDS: ACETAMINOPHEN 325MG TABLET PO PRN ×2 (18:09→22:39)
[2020-02-01] VITALS (13 sets, daily range): BP systolic 93–150; BP diastolic 64–99
[2020-02-01] MEDS: IPRATROPIUM/ALBUTEROL 0.5-3(2.5)MG/3ML NEB HHN SCH ×6 (00:24→20:01)
[2020-02-01] MEDS: METOCLOPRAMIDE HCL 10MG/2ML VIAL IV SCH ×3 (05:54→17:30)
[2020-02-01] MEDS: MORPHINE SULFATE 4 MG/ML CPJ (NOT FOR IM USE) IV PRN ×3 (05:55→17:56)
[2020-02-01] MEDS: BLOOD SUGAR DIAGNOSTIC STRIP TEST SCH ×3 (05:56→17:30)
[2020-02-01] MEDS: INSULIN LISPRO 100 UNITS/ML SUBCUT SCH ×3 (06:26→17:57)
[2020-02-01 07:09] LABS: BASOPHILS % 0.5 % (0.0-2.0); HEMATOCRIT. 30.3 % (36.0-48.0); HEMOGLOBIN. 9.7 g/dL (12.0-16.0); LYMPHOCYTES % 10.6 % (20.0-50.0); MEAN CORPUSCULAR HEMOGLOBIN 28.1 pg (28.0-32.0); MEAN CORPUSCULAR VOLUME 87.4 fL (81.0-99.0); MEAN PLATELET VOLUME 8.9 fl (7.4-10.4); MONOCYTES % 4.3 % (2.0-8.0); NEUTROPHILS % 81.6 % (40.0-76.0); PLATELET 305 x1000/uL (130-400); RED BLOOD CELL COUNT 3.47 mill/uL (4.2-5.4); RED CELL DISTRIBUTION WIDTH 17.8 % (11.6-14.6)
[2020-02-01 07:15] LABS: CHLORIDE 104 mEq/L (98-107)
[2020-02-01] MEDS: PANTOPRAZOLE SODIUM 40 MG/VIAL IV SCH (10:35)
[2020-02-01] MEDS: NICOTINE 21MG PATCH TD SCH (10:35)
[2020-02-01] MEDS: RISPERIDONE 0.5MG TABLET PO SCH ×2 (10:35→21:26)
[2020-02-01] MEDS: SODIUM CHLORIDE 0.45% 1,000 ML IV SCH (13:16)
[2020-02-01] MEDS: LORAZEPAM 2MG/ML CPJ IV PRN (21:26)
[2020-02-02] VITALS (15 sets, daily range): BP systolic 103–156; BP diastolic 60–91
[2020-02-02] MEDS: IPRATROPIUM/ALBUTEROL 0.5-3(2.5)MG/3ML NEB HHN SCH ×6 (00:05→20:28)
[2020-02-02] MEDS: ACETYLCYSTEINE 100MG/ML 10% VIAL 4ML INH SCH ×3 (00:06→16:15)
[2020-02-02] MEDS: METOCLOPRAMIDE HCL 10MG/2ML VIAL IV SCH ×5 (00:40→23:40)
[2020-02-02] MEDS: BLOOD SUGAR DIAGNOSTIC STRIP TEST SCH ×5 (00:45→23:26)
[2020-02-02] MEDS: INSULIN LISPRO 100 UNITS/ML SUBCUT SCH ×5 (00:45→23:44)
[2020-02-02] MEDS: SODIUM CHLORIDE 0.45% 1,000 ML IV SCH ×2 (01:58→13:40)
[2020-02-02 05:51] LABS: CHLORIDE 104 mEq/L (98-107)
[2020-02-02 06:49] LABS: BASOPHILS % 0.4 % (0.0-2.0); EOSINOPHILS % 2.2 % (0.0-5.0); HEMATOCRIT. 29.5 % (36.0-48.0); HEMOGLOBIN. 9.7 g/dL (12.0-16.0); LYMPHOCYTES % 11.4 % (20.0-50.0); MEAN CORPUSCULAR HEMOGLOBIN 28.5 pg (28.0-32.0); MEAN CORPUSCULAR VOLUME 86.7 fL (81.0-99.0); MEAN PLATELET VOLUME 9.1 fl (7.4-10.4); MONOCYTES % 5.8 % (2.0-8.0); NEUTROPHILS % 80.2 % (40.0-76.0); PLATELET 298 x1000/uL (130-400); RED BLOOD CELL COUNT 3.41 mill/uL (4.2-5.4)
[2020-02-02] MEDS: PANTOPRAZOLE SODIUM 40 MG/VIAL IV SCH (10:20)
[2020-02-02] MEDS: RISPERIDONE 0.5MG TABLET PO SCH ×2 (10:20→20:50)
[2020-02-02] MEDS: ACETAMINOPHEN 325MG TABLET PO PRN ×3 (10:20→20:50)
[2020-02-02] MEDS: NICOTINE 21MG PATCH TD SCH (10:21)
[2020-02-02] MEDS: LORAZEPAM 2MG/ML CPJ IV PRN ×2 (10:21→23:40)
[2020-02-02] MEDS ORDERED: VANCOMYCIN 2,000 MG in DEXT 5% WATER 500 ML IV SCH (18:00)
[2020-02-02] MEDS: AZTREONAM 1 G in DEXTROSE 5% WATER 50 ML IV SCH ×2 (18:59→23:46)
[2020-02-02] MEDS: LEVOFLOXACIN 500MG PREMIX 100 ML IV SCH (19:00)
[2020-02-03] VITALS (12 sets, daily range): BP systolic 109–149; BP diastolic 53–86
[2020-02-03] MEDS: IPRATROPIUM/ALBUTEROL 0.5-3(2.5)MG/3ML NEB HHN SCH ×6 (00:45→20:41)
[2020-02-03] MEDS: ACETYLCYSTEINE 100MG/ML 10% VIAL 4ML INH SCH ×3 (00:45→15:16)
[2020-02-03] MEDS: BLOOD SUGAR DIAGNOSTIC STRIP TEST SCH ×3 (05:33→17:56)
[2020-02-03] MEDS: INSULIN LISPRO 100 UNITS/ML SUBCUT SCH ×3 (05:33→18:28)
[2020-02-03] MEDS: VANCOMYCIN 1500MG in DEXTROSE 5% WATER 250ML IV SCH ×2 (05:41→17:56)
[2020-02-03] MEDS: METOCLOPRAMIDE HCL 10MG/2ML VIAL IV SCH ×3 (05:42→17:56)
[2020-02-03] MEDS: AZTREONAM 1 G in DEXTROSE 5% WATER 50 ML IV SCH ×3 (05:42→21:56)
[2020-02-03] MEDS: MORPHINE SULFATE 2 MG/ML CPJ (NOT FOR IM USE) IV PRN ×2 (05:48→11:10)
[2020-02-03 07:48] LABS: HEMATOCRIT. 30.4 % (36.0-48.0); HEMOGLOBIN. 9.8 g/dL (12.0-16.0); MEAN CORPUSCULAR HEMOGLOBIN 28.1 pg (28.0-32.0); MEAN CORPUSCULAR VOLUME 87.3 fL (81.0-99.0); MEAN PLATELET VOLUME 9.1 fl (7.4-10.4); PLATELET 307 x1000/uL (130-400); RED BLOOD CELL COUNT 3.48 mill/uL (4.2-5.4); RED CELL DISTRIBUTION WIDTH 18.6 % (11.6-14.6)
[2020-02-03] MEDS: ACETAMINOPHEN 325MG TABLET PO PRN (07:54)
[2020-02-03] MEDS: PANTOPRAZOLE SODIUM 40 MG/VIAL IV SCH (08:36)
[2020-02-03] MEDS: RISPERIDONE 0.5MG TABLET PO SCH ×2 (08:37→21:56)
[2020-02-03] MEDS: NICOTINE 21MG PATCH TD SCH (08:39)
[2020-02-03 08:43] LABS: CHLORIDE 100 mEq/L (98-107)
[2020-02-03 08:46] LABS: BG BASE EXCESS 2.1 mmol/L (-2.0-2.0); BG CARBOXYHEMOGLOBIN 0.5 % (0.5-1.5); BG DEOXYHEMOGLOBIN 0.4 % (0.0-5.0); BG FRACTION INSPIRED OXYGEN 100; BG HCO3 ACT 26.6 mmol/L (22.0-26.0); BG METHEMOGLOBIN 0.8 % (0.0-1.5); BG OXYGEN SATURATION 99.6 % (92.0-98.5); BG OXYHEMOGLOBIN 98.3 % (94.0-97.0); BG PCO2 41.1 mmHg (35.0-45.0); BG PH 7.429 (7.350-7.450); BG PO2 471.6 mmHg (75.0-100.0); BG SAMPLE SITE RIGHT RADIAL; BG TIDAL VOLUME(mL) 600 mL; BG TOTAL HEMOGLOBIN 10.7 g/dL (12.0-18.0); BG VENT MODE VENT - A/C; BG VENT RATE 12 set
[2020-02-03 10:44] LABS: PLATELET ESTIMATE NORMAL
[2020-02-03] MEDS: LEVOFLOXACIN 500MG PREMIX 100 ML IV SCH (11:09)
[2020-02-03] MEDS: SODIUM CHLORIDE 0.45% 1,000 ML IV SCH ×2 (11:57→16:20)
[2020-02-03] MEDS ORDERED: AMIKACIN SULFATE 500 MG in SODIUM CHLORIDE 0.9% 100 ML IV SCH (12:00)
[2020-02-04] VITALS (12 sets, daily range): BP systolic 89–151; BP diastolic 36–69
[2020-02-04] MEDS: IPRATROPIUM/ALBUTEROL 0.5-3(2.5)MG/3ML NEB HHN SCH ×6 (00:20→19:54)
[2020-02-04] MEDS: ACETYLCYSTEINE 100MG/ML 10% VIAL 4ML INH SCH ×3 (00:20→15:31)
[2020-02-04] MEDS: METOCLOPRAMIDE HCL 10MG/2ML VIAL IV SCH ×4 (01:15→18:33)
[2020-02-04] MEDS: INSULIN LISPRO 100 UNITS/ML SUBCUT SCH ×4 (06:00→17:49)
[2020-02-04] MEDS: BLOOD SUGAR DIAGNOSTIC STRIP TEST SCH ×4 (06:19→17:46)
[2020-02-04] MEDS: SODIUM CHLORIDE 0.45% 1,000 ML IV SCH ×2 (06:19→19:00)
[2020-02-04] MEDS: AZTREONAM 1 G in DEXTROSE 5% WATER 50 ML IV SCH ×3 (06:19→21:28)
[2020-02-04] MEDS: VANCOMYCIN 1500MG in DEXTROSE 5% WATER 250ML IV SCH (06:21)
[2020-02-04 06:34] LABS: CHLORIDE 101 mEq/L (98-107)
[2020-02-04 06:49] LABS: HEMATOCRIT. 29.2 % (36.0-48.0); HEMOGLOBIN. 9.3 g/dL (12.0-16.0); MEAN CORPUSCULAR HEMOGLOBIN 28.2 pg (28.0-32.0); MEAN CORPUSCULAR VOLUME 88.5 fL (81.0-99.0); MEAN PLATELET VOLUME 8.9 fl (7.4-10.4); PLATELET 283 x1000/uL (130-400); RED CELL DISTRIBUTION WIDTH 18.5 % (11.6-14.6)
[2020-02-04] MEDS: ACETAMINOPHEN 325MG TABLET PO PRN (07:25)
[2020-02-04] MEDS: LORAZEPAM 2MG/ML CPJ IV PRN (07:25)
[2020-02-04] MEDS: RISPERIDONE 0.5MG TABLET PO SCH ×2 (09:54→21:28)
[2020-02-04] MEDS: NICOTINE 21MG PATCH TD SCH (09:54)
[2020-02-04] MEDS: PANTOPRAZOLE SODIUM 40 MG/VIAL IV SCH (09:54)
[2020-02-04] MEDS: LEVOFLOXACIN 500MG PREMIX 100 ML IV SCH (10:41)
[2020-02-04] MEDS ORDERED: AMIKACIN SULFATE 500 MG in SODIUM CHLORIDE 0.9% 100 ML IV SCH (16:30)
[2020-02-05] VITALS (13 sets, daily range): BP systolic 94–144; BP diastolic 35–76
[2020-02-05] MEDS: IPRATROPIUM/ALBUTEROL 0.5-3(2.5)MG/3ML NEB HHN SCH ×6 (00:03→20:27)
[2020-02-05] MEDS: ACETYLCYSTEINE 100MG/ML 10% VIAL 4ML INH SCH ×3 (00:04→12:30)
[2020-02-05] MEDS: BLOOD SUGAR DIAGNOSTIC STRIP TEST SCH ×4 (00:26→18:23)
[2020-02-05] MEDS: DIPHENHYDRAMINE 50MG CAPSULE PO PRN (00:36)
[2020-02-05] MEDS: METOCLOPRAMIDE HCL 10MG/2ML VIAL IV SCH ×4 (00:36→18:38)
[2020-02-05] MEDS: INSULIN LISPRO 100 UNITS/ML SUBCUT SCH ×2 (05:38)
[2020-02-05] MEDS: AZTREONAM 1 G in DEXTROSE 5% WATER 50 ML IV SCH ×3 (05:38→21:50)
[2020-02-05 07:00] LABS: BASOPHILS % 0.9 % (0.0-2.0); EOSINOPHILS % 3.6 % (0.0-5.0); HEMATOCRIT. 26.9 % (36.0-48.0); HEMOGLOBIN. 8.6 g/dL (12.0-16.0); LYMPHOCYTES % 8.7 % (20.0-50.0); MEAN CORPUSCULAR HEMOGLOBIN 28.1 pg (28.0-32.0); MEAN CORPUSCULAR VOLUME 87.7 fL (81.0-99.0); MEAN PLATELET VOLUME 9.1 fl (7.4-10.4); NEUTROPHILS % 80.8 % (40.0-76.0); PLATELET 284 x1000/uL (130-400); RED BLOOD CELL COUNT 3.07 mill/uL (4.2-5.4); RED CELL DISTRIBUTION WIDTH 18.7 % (11.6-14.6)
[2020-02-05 07:45] LABS: CHLORIDE 104 mEq/L (98-107)
[2020-02-05 08:12] LABS: PLATELET ESTIMATE NORMAL
[2020-02-05] MEDS: SODIUM CHLORIDE 0.45% 1,000 ML IV SCH ×2 (08:20→21:51)
[2020-02-05] MEDS: PANTOPRAZOLE SODIUM 40 MG/VIAL IV SCH (09:17)
[2020-02-05] MEDS: RISPERIDONE 0.5MG TABLET PO SCH ×2 (09:17→21:50)
[2020-02-05] MEDS: NICOTINE 21MG PATCH TD SCH (09:17)
[2020-02-05] MEDS: LEVOFLOXACIN 500MG PREMIX 100 ML IV SCH (12:16)
[2020-02-05] MEDS: LORAZEPAM 2MG/ML CPJ IV PRN ×2 (16:23→22:47)
[2020-02-05] MEDS ORDERED: DEXTROSE 50% WATER 50ML SYRINGE IV PRN (19:45)
[2020-02-06] VITALS (12 sets, daily range): BP systolic 102–140; BP diastolic 50–86
[2020-02-06] MEDS: ACETYLCYSTEINE 100MG/ML 10% VIAL 4ML INH SCH ×4 (00:10→16:13)
[2020-02-06] MEDS: IPRATROPIUM/ALBUTEROL 0.5-3(2.5)MG/3ML NEB HHN SCH ×6 (00:29→20:05)
[2020-02-06] MEDS: METOCLOPRAMIDE HCL 10MG/2ML VIAL IV SCH ×4 (01:34→17:30)
[2020-02-06] MEDS: AZTREONAM 1 G in DEXTROSE 5% WATER 50 ML IV SCH ×3 (05:15→22:23)
[2020-02-06] MEDS: LORAZEPAM 2MG/ML CPJ IV PRN ×2 (05:15→11:14)
[2020-02-06] MEDS: BLOOD SUGAR DIAGNOSTIC STRIP TEST SCH ×4 (05:16→17:30)
[2020-02-06] MEDS: INSULIN LISPRO 100 UNITS/ML SUBCUT SCH ×4 (05:22→17:31)
[2020-02-06 07:11] LABS: CHLORIDE 103 mEq/L (98-107)
[2020-02-06 07:37] LABS: BASOPHILS % 0.8 % (0.0-2.0); HEMATOCRIT. 27.1 % (36.0-48.0); HEMOGLOBIN. 8.6 g/dL (12.0-16.0); LYMPHOCYTES % 8.7 % (20.0-50.0); MEAN CORPUSCULAR HEMOGLOBIN 28.1 pg (28.0-32.0); MEAN CORPUSCULAR VOLUME 88.2 fL (81.0-99.0); MONOCYTES % 7.4 % (2.0-8.0); NEUTROPHILS % 80.1 % (40.0-76.0); PLATELET 319 x1000/uL (130-400); RED BLOOD CELL COUNT 3.07 mill/uL (4.2-5.4); RED CELL DISTRIBUTION WIDTH 18.3 % (11.6-14.6)
[2020-02-06] MEDS: SODIUM CHLORIDE 3% FOR INH 4ML UD NEB INH SCH ×3 (08:20→16:13)
[2020-02-06] MEDS: SODIUM CHLORIDE 0.45% 1,000 ML IV SCH (11:00)
[2020-02-06] MEDS: PANTOPRAZOLE SODIUM 40 MG/VIAL IV SCH (11:14)
[2020-02-06] MEDS: HALOPERIDOL LACTATE 5MG/ML VIAL IM PRN (11:14)
[2020-02-06] MEDS: RISPERIDONE 0.5MG TABLET PO SCH ×2 (11:14→21:00)
[2020-02-06] MEDS: NICOTINE 21MG PATCH TD SCH (11:14)
[2020-02-07] VITALS (12 sets, daily range): BP systolic 107–178; BP diastolic 57–99
[2020-02-07] MEDS: IPRATROPIUM/ALBUTEROL 0.5-3(2.5)MG/3ML NEB HHN SCH ×6 (00:10→22:05)
[2020-02-07] MEDS: SODIUM CHLORIDE 0.45% 1,000 ML IV SCH ×2 (00:20→23:38)
[2020-02-07] MEDS: BLOOD SUGAR DIAGNOSTIC STRIP TEST SCH ×2 (00:27→06:00)
[2020-02-07] MEDS: DIPHENHYDRAMINE 50MG CAPSULE PO PRN (00:28)
[2020-02-07] MEDS: METOCLOPRAMIDE HCL 10MG/2ML VIAL IV SCH ×4 (00:28→18:01)
[2020-02-07] MEDS: MORPHINE SULFATE 2 MG/ML CPJ (NOT FOR IM USE) IV PRN ×3 (02:12→16:46)
[2020-02-07] MEDS: AZTREONAM 1 G in DEXTROSE 5% WATER 50 ML IV SCH ×3 (05:50→22:09)
[2020-02-07] MEDS: INSULIN LISPRO 100 UNITS/ML SUBCUT SCH ×4 (06:00→18:08)
[2020-02-07] MEDS: RISPERIDONE 0.5MG TABLET PO SCH ×2 (09:20→22:10)
[2020-02-07] MEDS: PANTOPRAZOLE SODIUM 40 MG/VIAL IV SCH (09:20)
[2020-02-07] MEDS: HALOPERIDOL LACTATE 5MG/ML VIAL IM PRN ×2 (09:21→16:46)
[2020-02-07] MEDS: LORAZEPAM 2MG/ML CPJ IV PRN ×2 (13:28→23:29)
[2020-02-08] VITALS (17 sets, daily range): BP systolic 102–168; BP diastolic 38–146
[2020-02-08] MEDS: BLOOD SUGAR DIAGNOSTIC STRIP TEST SCH ×5 (00:25→23:33)
[2020-02-08] MEDS: METOCLOPRAMIDE HCL 10MG/2ML VIAL IV SCH ×5 (00:25→23:30)
[2020-02-08] MEDS: ACETYLCYSTEINE 100MG/ML 10% VIAL 4ML INH SCH ×3 (00:32→15:38)
[2020-02-08] MEDS: IPRATROPIUM/ALBUTEROL 0.5-3(2.5)MG/3ML NEB HHN SCH ×6 (00:33→20:35)
[2020-02-08] MEDS: INSULIN LISPRO 100 UNITS/ML SUBCUT SCH ×5 (06:00→23:39)
[2020-02-08 06:40] LABS: BASOPHILS % 0.8 % (0.0-2.0); EOSINOPHILS % 2.1 % (0.0-5.0); HEMATOCRIT. 27.6 % (36.0-48.0); HEMOGLOBIN. 8.5 g/dL (12.0-16.0); LYMPHOCYTES % 11.1 % (20.0-50.0); MEAN CORPUSCULAR HEMOGLOBIN 27.5 pg (28.0-32.0); MEAN CORPUSCULAR VOLUME 88.9 fL (81.0-99.0); MEAN PLATELET VOLUME 8.4 fl (7.4-10.4); MONOCYTES % 7.1 % (2.0-8.0); NEUTROPHILS % 78.9 % (40.0-76.0); PLATELET 332 x1000/uL (130-400); RED CELL DISTRIBUTION WIDTH 17.9 % (11.6-14.6)
[2020-02-08 07:10] LABS: CHLORIDE 102 mEq/L (98-107)
[2020-02-08] MEDS: LORAZEPAM 2MG/ML CPJ IV PRN ×2 (08:15→22:43)
[2020-02-08] MEDS: PANTOPRAZOLE SODIUM 40 MG/VIAL IV SCH (08:15)
[2020-02-08] MEDS: RISPERIDONE 0.5MG TABLET PO SCH ×2 (08:15→20:55)
[2020-02-08] MEDS: HALOPERIDOL LACTATE 5MG/ML VIAL IM PRN (08:17)
[2020-02-08] MEDS: MORPHINE SULFATE 2 MG/ML CPJ (NOT FOR IM USE) IV PRN ×2 (13:03→22:43)
[2020-02-08] MEDS: AZTREONAM 1 G in DEXTROSE 5% WATER 50 ML IV SCH ×2 (16:51→22:39)
[2020-02-08] MEDS: SODIUM CHLORIDE 0.45% 1,000 ML IV SCH (17:09)
[2020-02-09] VITALS (12 sets, daily range): BP systolic 94–157; BP diastolic 45–84
[2020-02-09] MEDS: IPRATROPIUM/ALBUTEROL 0.5-3(2.5)MG/3ML NEB HHN SCH ×6 (00:48→20:31)
[2020-02-09] MEDS: ACETYLCYSTEINE 100MG/ML 10% VIAL 4ML INH SCH ×3 (00:48→16:01)
[2020-02-09] MEDS: AZTREONAM 1 G in DEXTROSE 5% WATER 50 ML IV SCH ×3 (05:01→21:55)
[2020-02-09] MEDS: METOCLOPRAMIDE HCL 10MG/2ML VIAL IV SCH ×3 (05:01→17:03)
[2020-02-09] MEDS: SODIUM CHLORIDE 0.45% 1,000 ML IV SCH ×2 (05:40→18:40)
[2020-02-09] MEDS: BLOOD SUGAR DIAGNOSTIC STRIP TEST SCH ×3 (06:00→17:02)
[2020-02-09] MEDS: INSULIN LISPRO 100 UNITS/ML SUBCUT SCH ×3 (06:00→17:03)
[2020-02-09 06:01] LABS: CHLORIDE 99 mEq/L (98-107)
[2020-02-09 06:18] LABS: HEMATOCRIT. 25.6 % (36.0-48.0); MEAN CORPUSCULAR HEMOGLOBIN 27.8 pg (28.0-32.0); MEAN PLATELET VOLUME 8.4 fl (7.4-10.4); PLATELET 313 x1000/uL (130-400); RED BLOOD CELL COUNT 2.87 mill/uL (4.2-5.4); RED CELL DISTRIBUTION WIDTH 18.4 % (11.6-14.6)
[2020-02-09 08:39] LABS: PLATELET ESTIMATE NORMAL
[2020-02-09] MEDS: RISPERIDONE 0.5MG TABLET PO SCH ×2 (09:09→21:55)
[2020-02-09] MEDS: PANTOPRAZOLE SODIUM 40 MG/VIAL IV SCH (09:09)
[2020-02-09] MEDS: HALOPERIDOL LACTATE 5MG/ML VIAL IM PRN (10:25)
[2020-02-09] MEDS: MORPHINE SULFATE 2 MG/ML CPJ (NOT FOR IM USE) IV PRN (10:26)
[2020-02-09] MEDS: LORAZEPAM 2MG/ML CPJ IV PRN (14:20)
[2020-02-10] VITALS (12 sets, daily range): BP systolic 100–147; BP diastolic 45–95
[2020-02-10] MEDS: LORAZEPAM 2MG/ML CPJ IV PRN ×2 (00:20→12:41)
[2020-02-10] MEDS: METOCLOPRAMIDE HCL 10MG/2ML VIAL IV SCH ×5 (00:20→23:43)
[2020-02-10] MEDS: MORPHINE SULFATE 2 MG/ML CPJ (NOT FOR IM USE) IV PRN ×4 (00:21→23:33)
[2020-02-10] MEDS: BLOOD SUGAR DIAGNOSTIC STRIP TEST SCH ×5 (00:23→23:33)
[2020-02-10] MEDS: ACETYLCYSTEINE 100MG/ML 10% VIAL 4ML INH SCH ×3 (00:30→16:47)
[2020-02-10] MEDS: IPRATROPIUM/ALBUTEROL 0.5-3(2.5)MG/3ML NEB HHN SCH ×6 (00:31→20:28)
[2020-02-10] MEDS: AZTREONAM 1 G in DEXTROSE 5% WATER 50 ML IV SCH ×3 (05:18→21:29)
[2020-02-10] MEDS: INSULIN LISPRO 100 UNITS/ML SUBCUT SCH ×5 (05:19→23:42)
[2020-02-10] MEDS: SODIUM CHLORIDE 0.45% 1,000 ML IV SCH ×2 (08:20→21:29)
[2020-02-10] MEDS: HALOPERIDOL LACTATE 5MG/ML VIAL IM PRN ×2 (09:03→23:42)
[2020-02-10] MEDS: RISPERIDONE 0.5MG TABLET PO SCH ×2 (09:03→21:28)
[2020-02-10] MEDS: PANTOPRAZOLE SODIUM 40 MG/VIAL IV SCH (09:03)
[2020-02-11] VITALS (12 sets, daily range): BP systolic 87–180; BP diastolic 48–97
[2020-02-11] MEDS: ACETYLCYSTEINE 100MG/ML 10% VIAL 4ML INH SCH ×3 (00:22→16:21)
[2020-02-11] MEDS: IPRATROPIUM/ALBUTEROL 0.5-3(2.5)MG/3ML NEB HHN SCH ×6 (00:23→21:31)
[2020-02-11] MEDS: LORAZEPAM 2MG/ML CPJ IV PRN ×2 (02:41→12:21)
[2020-02-11] MEDS: BLOOD SUGAR DIAGNOSTIC STRIP TEST SCH ×4 (05:02→23:37)
[2020-02-11] MEDS: INSULIN LISPRO 100 UNITS/ML SUBCUT SCH ×4 (05:02→23:43)
[2020-02-11] MEDS: METOCLOPRAMIDE HCL 10MG/2ML VIAL IV SCH ×4 (05:03→23:37)
[2020-02-11] MEDS: MORPHINE SULFATE 2 MG/ML CPJ (NOT FOR IM USE) IV PRN ×2 (05:34→20:05)
[2020-02-11] MEDS: PANTOPRAZOLE SODIUM 40 MG/VIAL IV SCH (11:21)
[2020-02-11] MEDS: SODIUM CHLORIDE 0.45% 1,000 ML IV SCH (11:21)
[2020-02-11] MEDS: RISPERIDONE 0.5MG TABLET PO SCH ×2 (11:21→21:52)
[2020-02-11] MEDS: AZTREONAM 1 G in DEXTROSE 5% WATER 50 ML IV SCH ×2 (16:08→21:55)
[2020-02-12] VITALS (12 sets, daily range): BP systolic 97–149; BP diastolic 42–81
[2020-02-12] MEDS: ACETYLCYSTEINE 100MG/ML 10% VIAL 4ML INH SCH ×3 (00:16→15:44)
[2020-02-12] MEDS: IPRATROPIUM/ALBUTEROL 0.5-3(2.5)MG/3ML NEB HHN SCH ×6 (00:16→20:48)
[2020-02-12] MEDS: SODIUM CHLORIDE 0.45% 1,000 ML IV SCH ×2 (02:35→13:07)
[2020-02-12] MEDS: AZTREONAM 1 G in DEXTROSE 5% WATER 50 ML IV SCH ×3 (05:24→22:17)
[2020-02-12] MEDS: BLOOD SUGAR DIAGNOSTIC STRIP TEST SCH ×3 (06:00→17:22)
[2020-02-12] MEDS: INSULIN LISPRO 100 UNITS/ML SUBCUT SCH ×3 (06:00→17:23)
[2020-02-12] MEDS: METOCLOPRAMIDE HCL 10MG/2ML VIAL IV SCH ×3 (06:15→17:17)
[2020-02-12 08:30] LABS: CHLORIDE 98 mEq/L (98-107)
[2020-02-12 09:32] LABS: BASOPHILS % 0.7 % (0.0-2.0); EOSINOPHILS % 2.1 % (0.0-5.0); HEMATOCRIT. 22.6 % (36.0-48.0); HEMOGLOBIN. 7.3 g/dL (12.0-16.0); LYMPHOCYTES % 10.8 % (20.0-50.0); MEAN CORPUSCULAR HEMOGLOBIN 28.4 pg (28.0-32.0); MEAN CORPUSCULAR VOLUME 88.6 fL (81.0-99.0); MEAN PLATELET VOLUME 7.9 fl (7.4-10.4); MONOCYTES % 5.7 % (2.0-8.0); NEUTROPHILS % 80.7 % (40.0-76.0); PLATELET 256 x1000/uL (130-400); RED BLOOD CELL COUNT 2.55 mill/uL (4.2-5.4); RED CELL DISTRIBUTION WIDTH 18.9 % (11.6-14.6)
[2020-02-12] MEDS: PANTOPRAZOLE SODIUM 40 MG/VIAL IV SCH (09:38)
[2020-02-12] MEDS: RISPERIDONE 0.5MG TABLET PO SCH (09:38)
[2020-02-12] MEDS: MORPHINE SULFATE 2 MG/ML CPJ (NOT FOR IM USE) IV PRN (09:39)
[2020-02-12 09:40] LABS: BG BASE EXCESS 10.9 mmol/L (-2.0-2.0); BG CARBOXYHEMOGLOBIN 0.4 % (0.5-1.5); BG DEOXYHEMOGLOBIN 2.3 % (0.0-5.0); BG FRACTION INSPIRED OXYGEN 55; BG HCO3 ACT 36.3 mmol/L (22.0-26.0); BG METHEMOGLOBIN 0.3 % (0.0-1.5); BG OXYGEN SATURATION 97.7 % (92.0-98.5); BG PCO2 55.1 mmHg (35.0-45.0); BG PH 7.437 (7.350-7.450); BG PO2 106.4 mmHg (75.0-100.0); BG SAMPLE SITE RIGHT RADIAL; BG TIDAL VOLUME(mL) 600 mL; BG TOTAL HEMOGLOBIN 7.7 g/dL (12.0-18.0); BG VENT MODE VENT - A/C; BG VENT RATE 12 set
[2020-02-12] MEDS ORDERED: LORAZEPAM 2MG/ML CPJ IV PRN (13:15)
[2020-02-12] MEDS: HALOPERIDOL LACTATE 5MG/ML VIAL IM PRN (13:22)
[2020-02-12] MEDS ORDERED: HALOPERIDOL LACTATE 5MG/ML VIAL IM PRN (16:00)
[2020-02-12] MEDS ORDERED: LORAZEPAM 1MG TABLET PO PRN (16:00)
[2020-02-12] MEDS ORDERED: FUROSEMIDE 40MG/4ML VIAL IVP NR (16:30)
[2020-02-12] MEDS: RISPERIDONE 1MG TABLET NG SCH (21:45)
[2020-02-12] MEDS: FUROSEMIDE 20MG/2ML VIAL IVP SCH (21:45)
[2020-02-13] VITALS (12 sets, daily range): BP systolic 99–158; BP diastolic 44–70
[2020-02-13] MEDS: IPRATROPIUM/ALBUTEROL 0.5-3(2.5)MG/3ML NEB HHN SCH ×3 (00:38→08:29)
[2020-02-13] MEDS: METOCLOPRAMIDE HCL 10MG/2ML VIAL IV SCH ×2 (00:55→06:51)
[2020-02-13] MEDS: BLOOD SUGAR DIAGNOSTIC STRIP TEST SCH ×4 (00:56→17:34)
[2020-02-13] MEDS: SODIUM CHLORIDE 0.45% 1,000 ML IV SCH (03:40)
[2020-02-13] MEDS: INSULIN LISPRO 100 UNITS/ML SUBCUT SCH ×4 (06:00→17:34)
[2020-02-13] MEDS: AZTREONAM 1 G in DEXTROSE 5% WATER 50 ML IV SCH ×3 (06:51→21:15)
[2020-02-13] MEDS: DIPHENHYDRAMINE 50MG CAPSULE PO PRN (08:47)
[2020-02-13] MEDS: RISPERIDONE 1MG TABLET NG SCH ×2 (08:47→21:15)
[2020-02-13] MEDS: PANTOPRAZOLE SODIUM 40 MG/VIAL IV SCH (08:47)
[2020-02-13] MEDS: FUROSEMIDE 20MG/2ML VIAL IVP SCH (09:11)
[2020-02-13] MEDS ORDERED: HYDROCODONE/APAP 7.5/325MG 1 TAB TABLET PEG PRN (09:45)
[2020-02-13] MEDS: ACETAMINOPHEN 650MG/20.3ML UDC PO PRN (14:15)
[2020-02-13] MEDS: HALOPERIDOL LACTATE 5MG/ML VIAL IM PRN (15:09)
[2020-02-13] MEDS ORDERED: VANCOMYCIN 1,750 MG in DEXT 5% WATER 250 ML IV NR (17:00)
[2020-02-13 17:53] LABS: CLARITY URINE CLEAR (CLEAR); COLOR URINE ORANGE (YELLOW); KETONES URINE NEGATIVE (NEGATIVE); LEUKOCYTE ESTERASE URINE TRACE (NEGATIVE); NITRITE URINE NEGATIVE (NEGATIVE); OCCULT BLOOD URINE NEGATIVE (NEGATIVE); PH URINE 7.5 (4.5-8.0); PROTEIN URINE NEGATIVE (NEGATIVE); SPECIFIC GRAVITY URINE 1.008 (1.005-1.030); UROBILINOGEN URINE 0.2 E.U./dL (0.2-1.0)
[2020-02-14] VITALS (12 sets, daily range): BP systolic 83–124; BP diastolic 43–81
[2020-02-14] MEDS: IPRATROPIUM/ALBUTEROL 0.5-3(2.5)MG/3ML NEB HHN SCH ×3 (00:21→16:50)
[2020-02-14] MEDS: COLISTIMETHATE SODIUM 150MG/VIAL INH SCH ×2 (00:22→12:40)
[2020-02-14] MEDS: DEXAMETHASONE 2MG TABLET PEG SCH ×2 (00:34→05:12)
[2020-02-14] MEDS: BLOOD SUGAR DIAGNOSTIC STRIP TEST SCH ×4 (00:34→17:45)
[2020-02-14] MEDS: HALOPERIDOL LACTATE 5MG/ML VIAL IM PRN (00:35)
[2020-02-14] MEDS: ACETAMINOPHEN 650MG/20.3ML UDC PO PRN (00:35)
[2020-02-14] MEDS ORDERED: VANCOMYCIN 1,000 MG in DEXT 5% WATER 250 ML IV SCH (03:00)
[2020-02-14] MEDS: INSULIN LISPRO 100 UNITS/ML SUBCUT SCH ×4 (05:04→17:45)
[2020-02-14 06:01] LABS: CHLORIDE 94 mEq/L (98-107)
[2020-02-14 06:16] LABS: HEMOGLOBIN. 8.4 g/dL (12.0-16.0); MEAN CORPUSCULAR HEMOGLOBIN 28.4 pg (28.0-32.0); MEAN CORPUSCULAR VOLUME 87.7 fL (81.0-99.0); MEAN PLATELET VOLUME 8.8 fl (7.4-10.4); PLATELET 277 x1000/uL (130-400); RED BLOOD CELL COUNT 2.96 mill/uL (4.2-5.4); RED CELL DISTRIBUTION WIDTH 18.9 % (11.6-14.6)
[2020-02-14 08:47] LABS: BG BASE EXCESS 8.6 mmol/L (-2.0-2.0); BG CARBOXYHEMOGLOBIN 0.4 % (0.5-1.5); BG DEOXYHEMOGLOBIN 1.5 % (0.0-5.0); BG FRACTION INSPIRED OXYGEN 55; BG HCO3 ACT 33.9 mmol/L (22.0-26.0); BG METHEMOGLOBIN 0.3 % (0.0-1.5); BG OXYGEN SATURATION 98.5 % (92.0-98.5); BG OXYHEMOGLOBIN 97.8 % (94.0-97.0); BG PCO2 51.3 mmHg (35.0-45.0); BG PH 7.438 (7.350-7.450); BG PO2 123.9 mmHg (75.0-100.0); BG SAMPLE SITE RIGHT RADIAL; BG TIDAL VOLUME(mL) 600 mL; BG TOTAL HEMOGLOBIN 8.9 g/dL (12.0-18.0); BG VENT MODE VENT - A/C; BG VENT RATE 12 set
[2020-02-14] MEDS: AZTREONAM 1 G in DEXTROSE 5% WATER 50 ML IV SCH ×3 (09:10→21:04)
[2020-02-14 09:42] LABS: PLATELET ESTIMATE NORMAL
[2020-02-14] MEDS: FUROSEMIDE 20MG/2ML VIAL IVP SCH (10:10)
[2020-02-14] MEDS: RISPERIDONE 1MG TABLET NG SCH ×2 (10:10→21:21)
[2020-02-14] MEDS: PANTOPRAZOLE SODIUM 40 MG/VIAL IV SCH (10:10)
[2020-02-14] MEDS: HALOPERIDOL 2MG TABLET PO PRN ×2 (10:10→18:55)
[2020-02-14] MEDS: VANCOMYCIN 1,000 MG in DEXT 5% WATER 250 ML IV SCH (11:59)
[2020-02-14] MEDS ORDERED: SODIUM CHLORIDE 0.9% 500 ML IV ONE ×2 (22:15→23:18)
[2020-02-14] MEDS ORDERED: LORAZEPAM 2MG/ML CPJ IV NR (22:30)
[2020-02-15] VITALS (12 sets, daily range): BP systolic 86–146; BP diastolic 38–71
[2020-02-15] MEDS: VANCOMYCIN 1,000 MG in DEXT 5% WATER 250 ML IV SCH ×2 (00:22→11:21)
[2020-02-15] MEDS: COLISTIMETHATE SODIUM 150MG/VIAL INH SCH ×2 (00:26→11:27)
[2020-02-15] MEDS: IPRATROPIUM/ALBUTEROL 0.5-3(2.5)MG/3ML NEB HHN SCH ×3 (02:06→15:09)
[2020-02-15] MEDS: AZTREONAM 1 G in DEXTROSE 5% WATER 50 ML IV SCH ×2 (05:49→18:29)
[2020-02-15] MEDS: INSULIN LISPRO 100 UNITS/ML SUBCUT SCH ×4 (06:00→18:00)
[2020-02-15] MEDS: BLOOD SUGAR DIAGNOSTIC STRIP TEST SCH ×4 (06:00→18:14)
[2020-02-15 06:54] LABS: CHLORIDE 96 mEq/L (98-107)
[2020-02-15] MEDS: RISPERIDONE 1MG TABLET NG SCH ×2 (09:09→21:00)
[2020-02-15] MEDS: PANTOPRAZOLE SODIUM 40 MG/VIAL IV SCH (09:09)
[2020-02-15 11:53] LABS: BG CARBOXYHEMOGLOBIN 0.3 % (0.5-1.5); BG DEOXYHEMOGLOBIN 4.3 % (0.0-5.0); BG FRACTION INSPIRED OXYGEN 50; BG HCO3 ACT 37.3 mmol/L (22.0-26.0); BG METHEMOGLOBIN 0.7 % (0.0-1.5); BG OXYGEN SATURATION 95.7 % (92.0-98.5); BG OXYHEMOGLOBIN 94.7 % (94.0-97.0); BG PCO2 53.6 mmHg (35.0-45.0); BG PO2 78.7 mmHg (75.0-100.0); BG SAMPLE SITE RIGHT RADIAL; BG TIDAL VOLUME(mL) 600 mL; BG TOTAL HEMOGLOBIN 8.8 g/dL (12.0-18.0); BG VENT MODE VENT - A/C; BG VENT RATE 12 set
[2020-02-15] MEDS: DEXT 5%/0.45% NACL 1000ML 1,000 ML IV SCH (18:29)
[2020-02-15] MEDS: METRONIDAZOLE 500MG TABLET PO SCH (22:00)
[2020-02-16] VITALS (12 sets, daily range): BP systolic 99–169; BP diastolic 51–89
[2020-02-16] MEDS: BLOOD SUGAR DIAGNOSTIC STRIP TEST SCH ×5 (00:01→23:18)
[2020-02-16] MEDS: IPRATROPIUM/ALBUTEROL 0.5-3(2.5)MG/3ML NEB HHN SCH ×4 (00:10→21:14)
[2020-02-16] MEDS: AZTREONAM 1 G in DEXTROSE 5% WATER 50 ML IV SCH ×3 (01:38→17:46)
[2020-02-16] MEDS: METRONIDAZOLE 500MG TABLET PO SCH ×3 (06:00→22:00)
[2020-02-16] MEDS: INSULIN LISPRO 100 UNITS/ML SUBCUT SCH ×5 (06:00→23:19)
[2020-02-16 06:38] LABS: HEMATOCRIT. 26.8 % (36.0-48.0); HEMOGLOBIN. 8.7 g/dL (12.0-16.0); MEAN CORPUSCULAR HEMOGLOBIN 28.3 pg (28.0-32.0); MEAN CORPUSCULAR VOLUME 87.2 fL (81.0-99.0); MEAN PLATELET VOLUME 8.7 fl (7.4-10.4); PLATELET 301 x1000/uL (130-400); RED BLOOD CELL COUNT 3.07 mill/uL (4.2-5.4); RED CELL DISTRIBUTION WIDTH 18.6 % (11.6-14.6)
[2020-02-16 06:39] LABS: CHLORIDE 97 mEq/L (98-107)
[2020-02-16] MEDS: PANTOPRAZOLE SODIUM 40 MG/VIAL IV SCH (08:49)
[2020-02-16] MEDS: RISPERIDONE 1MG TABLET NG SCH ×2 (09:00→21:00)
[2020-02-16 14:03] LABS: PLATELET ESTIMATE NORMAL
[2020-02-16] MEDS: COLISTIMETHATE SODIUM 150MG/VIAL INH SCH (20:55)
[2020-02-16] MEDS: HALOPERIDOL LACTATE 5MG/ML VIAL IM PRN (23:18)
[2020-02-16] MEDS: DEXT 5%/0.45% NACL 1000ML 1,000 ML IV SCH (23:19)
[2020-02-17] VITALS (14 sets, daily range): BP systolic 92–159; BP diastolic 44–76
[2020-02-17] MEDS: AZTREONAM 1 G in DEXTROSE 5% WATER 50 ML IV SCH ×3 (00:59→17:15)
[2020-02-17] MEDS: METRONIDAZOLE 500MG TABLET PO SCH ×3 (05:45→22:27)
[2020-02-17] MEDS: INSULIN LISPRO 100 UNITS/ML SUBCUT SCH ×3 (05:45→18:00)
[2020-02-17] MEDS: BLOOD SUGAR DIAGNOSTIC STRIP TEST SCH ×3 (05:46→18:00)
[2020-02-17] MEDS: IPRATROPIUM/ALBUTEROL 0.5-3(2.5)MG/3ML NEB HHN SCH ×2 (08:13→17:20)
[2020-02-17] MEDS: RISPERIDONE 1MG TABLET NG SCH ×3 (09:00→22:27)
[2020-02-17] MEDS: PANTOPRAZOLE SODIUM 40 MG/VIAL IV SCH (09:25)
[2020-02-17] MEDS: HALOPERIDOL LACTATE 5MG/ML VIAL IM PRN (09:26)
[2020-02-18] VITALS (12 sets, daily range): BP systolic 95–123; BP diastolic 46–63
[2020-02-18] MEDS: IPRATROPIUM/ALBUTEROL 0.5-3(2.5)MG/3ML NEB HHN SCH ×3 (00:25→11:27)
[2020-02-18] MEDS: DEXT 5%/0.45% NACL 1000ML 1,000 ML IV SCH ×2 (00:26→18:56)
[2020-02-18] MEDS: BLOOD SUGAR DIAGNOSTIC STRIP TEST SCH ×4 (00:35→18:15)
[2020-02-18] MEDS: AZTREONAM 1 G in DEXTROSE 5% WATER 50 ML IV SCH ×3 (02:43→18:53)
[2020-02-18] MEDS: METRONIDAZOLE 500MG TABLET PO SCH ×3 (06:00→21:48)
[2020-02-18] MEDS: INSULIN LISPRO 100 UNITS/ML SUBCUT SCH ×4 (06:00→18:00)
[2020-02-18 08:00] LABS: BASOPHILS % 0.9 % (0.0-2.0); EOSINOPHILS % 1.9 % (0.0-5.0); HEMATOCRIT. 23.7 % (36.0-48.0); HEMOGLOBIN. 7.7 g/dL (12.0-16.0); LYMPHOCYTES % 11.1 % (20.0-50.0); MEAN CORPUSCULAR HEMOGLOBIN 28.5 pg (28.0-32.0); MEAN CORPUSCULAR VOLUME 87.7 fL (81.0-99.0); MEAN PLATELET VOLUME 8.5 fl (7.4-10.4); MONOCYTES % 5.8 % (2.0-8.0); NEUTROPHILS % 80.3 % (40.0-76.0); PLATELET 334 x1000/uL (130-400); RED CELL DISTRIBUTION WIDTH 19.2 % (11.6-14.6)
[2020-02-18] MEDS: PANTOPRAZOLE SODIUM 40 MG/VIAL IV SCH (09:19)
[2020-02-18 10:08] LABS: CHLORIDE 100 mEq/L (98-107)
[2020-02-18] MEDS ORDERED: POTASSIUM CHLORIDE INJ 40 MEQ in DEXT 5% WATER 250 ML IV SCH (15:00)
[2020-02-18] MEDS: DIPHENHYDRAMINE 50MG CAPSULE PO PRN (17:48)
[2020-02-18] MEDS: COLISTIMETHATE SODIUM 150MG/VIAL INH SCH (20:59)
[2020-02-18] MEDS: RISPERIDONE 1MG TABLET NG SCH (21:48)
[2020-02-19] VITALS (12 sets, daily range): BP systolic 87–131; BP diastolic 41–78
[2020-02-19] MEDS: BLOOD SUGAR DIAGNOSTIC STRIP TEST SCH ×5 (00:20→23:09)
[2020-02-19] MEDS ORDERED: HYDROCODONE/APAP 7.5/325MG 1 TAB TABLET PO PRN (00:30)
[2020-02-19] MEDS: IPRATROPIUM/ALBUTEROL 0.5-3(2.5)MG/3ML NEB HHN SCH ×2 (01:07→09:38)
[2020-02-19] MEDS: AZTREONAM 1 G in DEXTROSE 5% WATER 50 ML IV SCH ×3 (03:08→18:12)
[2020-02-19] MEDS: INSULIN LISPRO 100 UNITS/ML SUBCUT SCH ×5 (06:00→23:09)
[2020-02-19] MEDS: METRONIDAZOLE 500MG TABLET PO SCH ×3 (06:34→22:29)
[2020-02-19] MEDS: PANTOPRAZOLE SODIUM 40 MG/VIAL IV SCH (09:35)
[2020-02-19] MEDS: RISPERIDONE 1MG TABLET NG SCH ×2 (09:36→22:30)
[2020-02-19] MEDS: COLISTIMETHATE SODIUM 150MG/VIAL INH SCH (09:38)
[2020-02-19] MEDS: HALOPERIDOL 2MG TABLET PO PRN (12:22)
[2020-02-19] MEDS: SODIUM CHLORIDE 0.9% 1,000 ML IV SCH (17:53)
[2020-02-20] VITALS (13 sets, daily range): BP systolic 96–131; BP diastolic 56–73
[2020-02-20] MEDS: IPRATROPIUM/ALBUTEROL 0.5-3(2.5)MG/3ML NEB HHN SCH ×3 (00:24→09:57)
[2020-02-20] MEDS: COLISTIMETHATE SODIUM 150MG/VIAL INH SCH ×3 (00:51→09:00)
[2020-02-20] MEDS: AZTREONAM 1 G in DEXTROSE 5% WATER 50 ML IV SCH ×3 (01:23→19:11)
[2020-02-20] MEDS: BLOOD SUGAR DIAGNOSTIC STRIP TEST SCH ×3 (05:37→18:00)
[2020-02-20] MEDS: METRONIDAZOLE 500MG TABLET PO SCH ×3 (05:37→21:58)
[2020-02-20] MEDS: INSULIN LISPRO 100 UNITS/ML SUBCUT SCH ×3 (05:50→18:00)
[2020-02-20 06:34] LABS: BASOPHILS % 0.9 % (0.0-2.0); EOSINOPHILS % 2.2 % (0.0-5.0); HEMATOCRIT. 25.3 % (36.0-48.0); HEMOGLOBIN. 8.3 g/dL (12.0-16.0); LYMPHOCYTES % 8.8 % (20.0-50.0); MEAN CORPUSCULAR HEMOGLOBIN 28.9 pg (28.0-32.0); MEAN CORPUSCULAR VOLUME 87.6 fL (81.0-99.0); MEAN PLATELET VOLUME 8.2 fl (7.4-10.4); MONOCYTES % 6.6 % (2.0-8.0); NEUTROPHILS % 81.5 % (40.0-76.0); PLATELET 416 x1000/uL (130-400); RED BLOOD CELL COUNT 2.88 mill/uL (4.2-5.4); RED CELL DISTRIBUTION WIDTH 19.6 % (11.6-14.6)
[2020-02-20 06:37] LABS: CHLORIDE 101 mEq/L (98-107)
[2020-02-20] MEDS: RISPERIDONE 1MG TABLET NG SCH ×2 (09:14→21:58)
[2020-02-20] MEDS: PANTOPRAZOLE SODIUM 40 MG/VIAL IV SCH (09:17)
[2020-02-20] MEDS: SODIUM CHLORIDE 0.9% 1,000 ML IV SCH (19:11)
[2020-02-21] VITALS (12 sets, daily range): BP systolic 101–133; BP diastolic 38–76
[2020-02-21] MEDS: BLOOD SUGAR DIAGNOSTIC STRIP TEST SCH ×4 (00:09→17:39)
[2020-02-21] MEDS: AZTREONAM 1 G in DEXTROSE 5% WATER 50 ML IV SCH ×3 (01:06→17:39)
[2020-02-21] MEDS: COLISTIMETHATE SODIUM 150MG/VIAL INH SCH (01:34)
[2020-02-21] MEDS: INSULIN LISPRO 100 UNITS/ML SUBCUT SCH ×4 (05:29→17:53)
[2020-02-21] MEDS: METRONIDAZOLE 500MG TABLET PO SCH ×3 (05:29→21:50)
[2020-02-21] MEDS: IPRATROPIUM/ALBUTEROL 0.5-3(2.5)MG/3ML NEB HHN SCH ×2 (08:35→16:37)
[2020-02-21] MEDS: RISPERIDONE 1MG TABLET NG SCH ×2 (09:43→21:50)
[2020-02-21] MEDS: PANTOPRAZOLE SODIUM 40 MG/VIAL IV SCH (09:43)
[2020-02-21] MEDS: SODIUM CHLORIDE 0.9% 1,000 ML IV SCH (17:40)
[2020-02-22] VITALS (15 sets, daily range): BP systolic 84–121; BP diastolic 50–85
[2020-02-22] MEDS: IPRATROPIUM/ALBUTEROL 0.5-3(2.5)MG/3ML NEB HHN SCH ×5 (00:36→16:46)
[2020-02-22] MEDS: BLOOD SUGAR DIAGNOSTIC STRIP TEST SCH ×4 (00:47→18:41)
[2020-02-22] MEDS: AZTREONAM 1 G in DEXTROSE 5% WATER 50 ML IV SCH ×3 (02:16→17:47)
[2020-02-22] MEDS: INSULIN LISPRO 100 UNITS/ML SUBCUT SCH ×2 (06:00)
[2020-02-22] MEDS: METRONIDAZOLE 500MG TABLET PO SCH ×2 (06:01→14:29)
[2020-02-22] MEDS: PANTOPRAZOLE SODIUM 40 MG/VIAL IV SCH (08:40)
[2020-02-22] MEDS: RISPERIDONE 1MG TABLET NG SCH ×2 (08:40→20:23)
[2020-02-22] MEDS: ACETAMINOPHEN 650MG/20.3ML UDC PO PRN (14:31)
[2020-02-22] MEDS: SODIUM CHLORIDE 0.9% 1,000 ML IV SCH (17:30)
[2020-02-23] VITALS (12 sets, daily range): BP systolic 86–133; BP diastolic 47–68
[2020-02-23] MEDS: METRONIDAZOLE 500MG TABLET PO SCH ×4 (00:02→21:39)
[2020-02-23] MEDS: BLOOD SUGAR DIAGNOSTIC STRIP TEST SCH ×4 (00:59→18:13)
[2020-02-23] MEDS: AZTREONAM 1 G in DEXTROSE 5% WATER 50 ML IV SCH ×3 (01:17→18:01)
[2020-02-23] MEDS: IPRATROPIUM/ALBUTEROL 0.5-3(2.5)MG/3ML NEB HHN SCH ×3 (04:04→17:08)
[2020-02-23] MEDS: INSULIN LISPRO 100 UNITS/ML SUBCUT SCH ×4 (06:00→18:00)
[2020-02-23 06:18] LABS: HEMATOCRIT. 28.9 % (36.0-48.0); LYMPHOCYTES % 12.2 % (20.0-50.0); MEAN CORPUSCULAR HEMOGLOBIN 27.7 pg (28.0-32.0); MEAN CORPUSCULAR VOLUME 89.1 fL (81.0-99.0); MEAN PLATELET VOLUME 8.3 fl (7.4-10.4); NEUTROPHILS % 74.8 % (40.0-76.0); PLATELET 418 x1000/uL (130-400); RED BLOOD CELL COUNT 3.25 mill/uL (4.2-5.4); RED CELL DISTRIBUTION WIDTH 20.1 % (11.6-14.6)
[2020-02-23 07:20] LABS: CHLORIDE 104 mEq/L (98-107)
[2020-02-23] MEDS: DIPHENHYDRAMINE 50MG CAPSULE PO PRN (07:58)
[2020-02-23] MEDS: COLISTIMETHATE SODIUM 150MG/VIAL INH SCH (08:48)
[2020-02-23] MEDS: RISPERIDONE 1MG TABLET NG SCH ×2 (09:26→21:08)
[2020-02-23] MEDS: PANTOPRAZOLE SODIUM 40 MG/VIAL IV SCH (09:26)
[2020-02-23] MEDS: SODIUM CHLORIDE 0.9% 1,000 ML IV SCH (18:08)
[2020-02-24] VITALS (11 sets, daily range): BP systolic 91–122; BP diastolic 50–67
[2020-02-24] MEDS: COLISTIMETHATE SODIUM 150MG/VIAL INH SCH ×3 (00:31→21:42)
[2020-02-24] MEDS: IPRATROPIUM/ALBUTEROL 0.5-3(2.5)MG/3ML NEB HHN SCH ×2 (00:31→09:09)
[2020-02-24] MEDS: AZTREONAM 1 G in DEXTROSE 5% WATER 50 ML IV SCH ×3 (01:21→18:35)
[2020-02-24] MEDS: METRONIDAZOLE 500MG TABLET PO SCH ×3 (05:34→22:55)
[2020-02-24] MEDS: INSULIN LISPRO 100 UNITS/ML SUBCUT SCH ×4 (05:34→18:00)
[2020-02-24] MEDS: BLOOD SUGAR DIAGNOSTIC STRIP TEST SCH ×5 (05:34→23:11)
[2020-02-24] MEDS: PANTOPRAZOLE SODIUM 40 MG/VIAL IV SCH (09:41)
[2020-02-24] MEDS: RISPERIDONE 1MG TABLET NG SCH ×2 (09:45→22:56)
[2020-02-24] MEDS: ACETAMINOPHEN 650MG/20.3ML UDC PO PRN (13:22)
[2020-02-24] MEDS: SODIUM CHLORIDE 0.9% 1,000 ML IV SCH (18:42)
[2020-02-25] VITALS (12 sets, daily range): BP systolic 80–141; BP diastolic 53–76
[2020-02-25] MEDS: IPRATROPIUM/ALBUTEROL 0.5-3(2.5)MG/3ML NEB HHN SCH ×3 (00:51→20:15)
[2020-02-25] MEDS: AZTREONAM 1 G in DEXTROSE 5% WATER 50 ML IV SCH ×3 (03:54→17:31)
[2020-02-25] MEDS: INSULIN LISPRO 100 UNITS/ML SUBCUT SCH ×4 (06:00→17:45)
[2020-02-25] MEDS: METRONIDAZOLE 500MG TABLET PO SCH ×3 (06:37→21:04)
[2020-02-25] MEDS: RISPERIDONE 1MG TABLET NG SCH ×2 (09:14→20:49)
[2020-02-25] MEDS: PANTOPRAZOLE SODIUM 40 MG/VIAL IV SCH (09:14)
[2020-02-25] MEDS: BLOOD SUGAR DIAGNOSTIC STRIP TEST SCH ×2 (12:10→17:15)
[2020-02-25] MEDS: COLISTIMETHATE SODIUM 150MG/VIAL INH SCH ×2 (13:20→20:15)
[2020-02-25] MEDS: HALOPERIDOL LACTATE 5MG/ML VIAL IM PRN (15:17)
[2020-02-25] MEDS: SODIUM CHLORIDE 0.9% 1,000 ML IV SCH (17:32)
[2020-02-25] MEDS: DIPHENHYDRAMINE 50MG CAPSULE PO PRN (20:49)
[2020-02-26] VITALS (12 sets, daily range): BP systolic 96–120; BP diastolic 53–72
[2020-02-26] MEDS: AZTREONAM 1 G in DEXTROSE 5% WATER 50 ML IV SCH ×3 (02:27→18:56)
[2020-02-26] MEDS: METRONIDAZOLE 500MG TABLET PO SCH ×3 (05:37→22:46)
[2020-02-26] MEDS: BLOOD SUGAR DIAGNOSTIC STRIP TEST SCH ×4 (05:38→18:55)
[2020-02-26] MEDS: INSULIN LISPRO 100 UNITS/ML SUBCUT SCH ×4 (05:38→18:00)
[2020-02-26 05:45] LABS: BASOPHILS % 0.7 % (0.0-2.0); EOSINOPHILS % 3.5 % (0.0-5.0); HEMATOCRIT. 27.9 % (36.0-48.0); HEMOGLOBIN. 9.1 g/dL (12.0-16.0); LYMPHOCYTES % 13.9 % (20.0-50.0); MEAN CORPUSCULAR HEMOGLOBIN 28.6 pg (28.0-32.0); MEAN CORPUSCULAR VOLUME 88.4 fL (81.0-99.0); MEAN PLATELET VOLUME 8.3 fl (7.4-10.4); MONOCYTES % 7.3 % (2.0-8.0); NEUTROPHILS % 74.6 % (40.0-76.0); PLATELET 346 x1000/uL (130-400); RED BLOOD CELL COUNT 3.16 mill/uL (4.2-5.4)
[2020-02-26 06:33] LABS: CHLORIDE 103 mEq/L (98-107)
[2020-02-26] MEDS: DIPHENHYDRAMINE 50MG CAPSULE PO PRN ×2 (06:34→22:46)
[2020-02-26] MEDS: IPRATROPIUM/ALBUTEROL 0.5-3(2.5)MG/3ML NEB HHN SCH ×2 (08:29→15:52)
[2020-02-26] MEDS: COLISTIMETHATE SODIUM 150MG/VIAL INH SCH ×2 (08:30→22:27)
[2020-02-26] MEDS: PANTOPRAZOLE SODIUM 40 MG/VIAL IV SCH (10:05)
[2020-02-26] MEDS: RISPERIDONE 1MG TABLET NG SCH ×2 (10:05→22:46)
[2020-02-26] MEDS: SODIUM CHLORIDE 0.9% 1,000 ML IV SCH (17:30)
[2020-02-26] MEDS ORDERED: ZOLPIDEM TARTRATE 5MG TABLET PO PRN (21:00)
[2020-02-27] VITALS (12 sets, daily range): BP systolic 91–111; BP diastolic 48–65
[2020-02-27] MEDS: ACETYLCYSTEINE 100MG/ML 10% VIAL 4ML INH SCH ×3 (00:09→22:32)
[2020-02-27] MEDS: IPRATROPIUM/ALBUTEROL 0.5-3(2.5)MG/3ML NEB HHN SCH ×4 (00:09→22:32)
[2020-02-27] MEDS: AZTREONAM 1 G in DEXTROSE 5% WATER 50 ML IV SCH ×3 (01:54→17:26)
[2020-02-27] MEDS: DIPHENHYDRAMINE 50MG CAPSULE PO PRN ×2 (05:40→17:26)
[2020-02-27] MEDS: INSULIN LISPRO 100 UNITS/ML SUBCUT SCH ×4 (05:40→17:33)
[2020-02-27] MEDS: BLOOD SUGAR DIAGNOSTIC STRIP TEST SCH ×4 (05:40→17:26)
[2020-02-27] MEDS: METRONIDAZOLE 500MG TABLET PO SCH ×3 (05:40→21:30)
[2020-02-27 08:32] LABS: BG BASE EXCESS 6.4 mmol/L (-2.0-2.0); BG CARBOXYHEMOGLOBIN 0.5 % (0.5-1.5); BG DEOXYHEMOGLOBIN 8.1 % (0.0-5.0); BG FRACTION INSPIRED OXYGEN 35; BG HCO3 ACT 31.5 mmol/L (22.0-26.0); BG METHEMOGLOBIN 0.2 % (0.0-1.5); BG OXYGEN SATURATION 91.8 % (92.0-98.5); BG OXYHEMOGLOBIN 91.2 % (94.0-97.0); BG PH 7.426 (7.350-7.450); BG PO2 61.4 mmHg (75.0-100.0); BG PRESSURE SUPPORT 14; BG SAMPLE SITE LEFT RADIAL; BG TIDAL VOLUME(mL) 600 mL; BG TOTAL HEMOGLOBIN 8.3 g/dL (12.0-18.0); BG VENT MODE VENT - SIMV; BG VENT RATE 8 set
[2020-02-27] MEDS: PANTOPRAZOLE SODIUM 40 MG/VIAL IV SCH (09:31)
[2020-02-27] MEDS: RISPERIDONE 1MG TABLET NG SCH ×2 (09:31→20:02)
[2020-02-27] MEDS: HYDROCODONE/ACETAMINOPHEN 5/325MG TABLET PO PRN ×2 (13:51→19:56)
[2020-02-27] MEDS: SODIUM CHLORIDE 0.9% 1,000 ML IV SCH (17:26)
[2020-02-27] MEDS: COLISTIMETHATE SODIUM 150MG/VIAL INH SCH (22:33)
[2020-02-28] VITALS (11 sets, daily range): BP systolic 94–139; BP diastolic 51–72
[2020-02-28] MEDS: BLOOD SUGAR DIAGNOSTIC STRIP TEST SCH ×4 (00:09→17:15)
[2020-02-28] MEDS: DIPHENHYDRAMINE 50MG CAPSULE PO PRN (00:44)
[2020-02-28] MEDS: AZTREONAM 1 G in DEXTROSE 5% WATER 50 ML IV SCH ×3 (01:13→17:22)
[2020-02-28] MEDS: METRONIDAZOLE 500MG TABLET PO SCH ×3 (05:33→20:42)
[2020-02-28] MEDS: INSULIN LISPRO 100 UNITS/ML SUBCUT SCH ×4 (05:36→17:15)
[2020-02-28] MEDS: ACETYLCYSTEINE 100MG/ML 10% VIAL 4ML INH SCH ×2 (08:10→16:08)
[2020-02-28] MEDS: IPRATROPIUM/ALBUTEROL 0.5-3(2.5)MG/3ML NEB HHN SCH ×2 (08:10→16:07)
[2020-02-28] MEDS: COLISTIMETHATE SODIUM 150MG/VIAL INH SCH ×2 (08:11→20:04)
[2020-02-28] MEDS: RISPERIDONE 1MG TABLET NG SCH ×2 (09:41→20:43)
[2020-02-28] MEDS: PANTOPRAZOLE SODIUM 40 MG/VIAL IV SCH (09:42)
[2020-02-28] MEDS: HYDROCODONE/ACETAMINOPHEN 5/325MG TABLET PO PRN (19:00)
[2020-02-28] MEDS: SODIUM CHLORIDE 0.9% 1,000 ML IV SCH (20:47)
[2020-02-29] VITALS (14 sets, daily range): BP systolic 90–133; BP diastolic 38–75
[2020-02-29] MEDS: ACETYLCYSTEINE 100MG/ML 10% VIAL 4ML INH SCH ×4 (00:23→23:57)
[2020-02-29] MEDS: IPRATROPIUM/ALBUTEROL 0.5-3(2.5)MG/3ML NEB HHN SCH ×4 (00:23→23:57)
[2020-02-29] MEDS: AZTREONAM 1 G in DEXTROSE 5% WATER 50 ML IV SCH ×3 (02:37→18:08)
[2020-02-29] MEDS: INSULIN LISPRO 100 UNITS/ML SUBCUT SCH ×5 (06:00→23:22)
[2020-02-29 06:19] LABS: BASOPHILS % 0.7 % (0.0-2.0); EOSINOPHILS % 2.6 % (0.0-5.0); HEMATOCRIT. 26.6 % (36.0-48.0); HEMOGLOBIN. 8.7 g/dL (12.0-16.0); LYMPHOCYTES % 10.5 % (20.0-50.0); MEAN CORPUSCULAR VOLUME 88.9 fL (81.0-99.0); MEAN PLATELET VOLUME 8.2 fl (7.4-10.4); MONOCYTES % 8.5 % (2.0-8.0); NEUTROPHILS % 77.7 % (40.0-76.0); PLATELET 336 x1000/uL (130-400); RED BLOOD CELL COUNT 2.99 mill/uL (4.2-5.4); RED CELL DISTRIBUTION WIDTH 19.4 % (11.6-14.6)
[2020-02-29 06:21] LABS: CHLORIDE 101 mEq/L (98-107)
[2020-02-29] MEDS: METRONIDAZOLE 500MG TABLET PO SCH ×3 (06:55→21:09)
[2020-02-29] MEDS: BLOOD SUGAR DIAGNOSTIC STRIP TEST SCH ×5 (06:56→23:22)
[2020-02-29] MEDS: DIPHENHYDRAMINE 50MG CAPSULE PO PRN ×3 (07:49→22:02)
[2020-02-29] MEDS: COLISTIMETHATE SODIUM 150MG/VIAL INH SCH ×2 (08:15→19:59)
[2020-02-29] MEDS: PANTOPRAZOLE SODIUM 40 MG/VIAL IV SCH (08:55)
[2020-02-29] MEDS: RISPERIDONE 1MG TABLET NG SCH ×2 (08:55→20:46)
[2020-02-29] MEDS: HYDROCODONE/ACETAMINOPHEN 5/325MG TABLET PO PRN (12:03)
[2020-03-01] VITALS (11 sets, daily range): BP systolic 90–127; BP diastolic 35–72
[2020-03-01] MEDS: AZTREONAM 1 G in DEXTROSE 5% WATER 50 ML IV SCH ×3 (01:04→17:39)
[2020-03-01] MEDS: SODIUM CHLORIDE 0.9% 1,000 ML IV SCH ×2 (01:05→17:39)
[2020-03-01] MEDS: INSULIN LISPRO 100 UNITS/ML SUBCUT SCH ×3 (06:00→17:40)
[2020-03-01] MEDS: BLOOD SUGAR DIAGNOSTIC STRIP TEST SCH ×3 (06:20→17:40)
[2020-03-01] MEDS: METRONIDAZOLE 500MG TABLET PO SCH ×3 (06:22→21:12)
[2020-03-01 06:52] LABS: BASOPHILS % 0.9 % (0.0-2.0); EOSINOPHILS % 2.1 % (0.0-5.0); HEMATOCRIT. 27.4 % (36.0-48.0); MEAN CORPUSCULAR HEMOGLOBIN 29.1 pg (28.0-32.0); MEAN CORPUSCULAR VOLUME 88.8 fL (81.0-99.0); MONOCYTES % 9.3 % (2.0-8.0); NEUTROPHILS % 77.7 % (40.0-76.0); PLATELET 335 x1000/uL (130-400); RED BLOOD CELL COUNT 3.08 mill/uL (4.2-5.4); RED CELL DISTRIBUTION WIDTH 19.6 % (11.6-14.6)
[2020-03-01] MEDS: IPRATROPIUM/ALBUTEROL 0.5-3(2.5)MG/3ML NEB HHN SCH ×3 (08:41→23:55)
[2020-03-01] MEDS: COLISTIMETHATE SODIUM 150MG/VIAL INH SCH (08:42)
[2020-03-01] MEDS: ACETYLCYSTEINE 100MG/ML 10% VIAL 4ML INH SCH ×3 (08:42→23:56)
[2020-03-01] MEDS: RISPERIDONE 1MG TABLET NG SCH ×2 (09:13→21:13)
[2020-03-01] MEDS: ACETAMINOPHEN 650MG/20.3ML UDC PO PRN (09:13)
[2020-03-01] MEDS: PANTOPRAZOLE SODIUM 40 MG/VIAL IV SCH (09:13)
[2020-03-01] MEDS: DIPHENHYDRAMINE 50MG CAPSULE PO PRN (10:46)
[2020-03-01] MEDS: HALOPERIDOL 2MG TABLET PO PRN (16:26)
[2020-03-02] VITALS (12 sets, daily range): BP systolic 92–126; BP diastolic 35–82
[2020-03-02] MEDS: COLISTIMETHATE SODIUM 150MG/VIAL INH SCH (00:25)
[2020-03-02] MEDS: AZTREONAM 1 G in DEXTROSE 5% WATER 50 ML IV SCH ×3 (01:17→18:03)
[2020-03-02] MEDS: DIPHENHYDRAMINE 50MG CAPSULE PO PRN ×2 (02:56→11:38)
[2020-03-02] MEDS: INSULIN LISPRO 100 UNITS/ML SUBCUT SCH ×4 (06:00→18:00)
[2020-03-02] MEDS: METRONIDAZOLE 500MG TABLET PO SCH ×3 (06:14→20:56)
[2020-03-02] MEDS: BLOOD SUGAR DIAGNOSTIC STRIP TEST SCH ×4 (06:14→18:03)
[2020-03-02 07:21] LABS: BASOPHILS % 0.7 % (0.0-2.0); EOSINOPHILS % 2.7 % (0.0-5.0); HEMATOCRIT. 26.1 % (36.0-48.0); HEMOGLOBIN. 8.4 g/dL (12.0-16.0); LYMPHOCYTES % 13.6 % (20.0-50.0); MEAN CORPUSCULAR HEMOGLOBIN 28.7 pg (28.0-32.0); MEAN CORPUSCULAR VOLUME 89.3 fL (81.0-99.0); MEAN PLATELET VOLUME 7.8 fl (7.4-10.4); MONOCYTES % 8.9 % (2.0-8.0); NEUTROPHILS % 74.1 % (40.0-76.0); PLATELET 325 x1000/uL (130-400); RED BLOOD CELL COUNT 2.92 mill/uL (4.2-5.4); RED CELL DISTRIBUTION WIDTH 19.4 % (11.6-14.6)
[2020-03-02] MEDS: ACETYLCYSTEINE 100MG/ML 10% VIAL 4ML INH SCH (08:45)
[2020-03-02] MEDS: IPRATROPIUM/ALBUTEROL 0.5-3(2.5)MG/3ML NEB HHN SCH (08:45)
[2020-03-02] MEDS: PANTOPRAZOLE SODIUM 40 MG/VIAL IV SCH (09:26)
[2020-03-02] MEDS: SODIUM CHLORIDE 0.9% 1,000 ML IV SCH (09:27)
[2020-03-02] MEDS: RISPERIDONE 1MG TABLET NG SCH ×2 (09:27→20:56)
[2020-03-03] VITALS (12 sets, daily range): BP systolic 92–122; BP diastolic 44–74
[2020-03-03] MEDS: IPRATROPIUM/ALBUTEROL 0.5-3(2.5)MG/3ML NEB HHN SCH ×3 (00:38→15:47)
[2020-03-03] MEDS: BLOOD SUGAR DIAGNOSTIC STRIP TEST SCH ×4 (00:48→17:30)
[2020-03-03] MEDS: ACETAMINOPHEN 650MG/20.3ML UDC PO PRN (00:49)
[2020-03-03] MEDS: AZTREONAM 1 G in DEXTROSE 5% WATER 50 ML IV SCH ×2 (00:49→09:05)
[2020-03-03] MEDS: DIPHENHYDRAMINE 50MG CAPSULE PO PRN ×2 (00:49→17:31)
[2020-03-03] MEDS: INSULIN LISPRO 100 UNITS/ML SUBCUT SCH ×4 (05:30→17:30)
[2020-03-03] MEDS: METRONIDAZOLE 500MG TABLET PO SCH ×3 (05:30→21:01)
[2020-03-03 07:14] LABS: BASOPHILS % 0.9 % (0.0-2.0); EOSINOPHILS % 2.4 % (0.0-5.0); HEMATOCRIT. 26.4 % (36.0-48.0); HEMOGLOBIN. 8.6 g/dL (12.0-16.0); LYMPHOCYTES % 13.8 % (20.0-50.0); MEAN CORPUSCULAR HEMOGLOBIN 28.7 pg (28.0-32.0); MEAN CORPUSCULAR VOLUME 88.3 fL (81.0-99.0); MEAN PLATELET VOLUME 8.2 fl (7.4-10.4); MONOCYTES % 9.7 % (2.0-8.0); NEUTROPHILS % 73.2 % (40.0-76.0); PLATELET 338 x1000/uL (130-400); RED BLOOD CELL COUNT 2.99 mill/uL (4.2-5.4); RED CELL DISTRIBUTION WIDTH 19.7 % (11.6-14.6)
[2020-03-03] MEDS: COLISTIMETHATE SODIUM 150MG/VIAL INH SCH ×2 (08:42→20:30)
[2020-03-03] MEDS: RISPERIDONE 1MG TABLET NG SCH ×4 (09:05→20:05)
[2020-03-03] MEDS: PANTOPRAZOLE SODIUM 40 MG/VIAL IV SCH (09:05)
[2020-03-03] MEDS: LORAZEPAM 0.5MG TABLET PO PRN (12:32)
[2020-03-03] MEDS: SODIUM CHLORIDE 0.9% 1,000 ML IV SCH (15:07)
[2020-03-04] VITALS (12 sets, daily range): BP systolic 92–123; BP diastolic 24–62
[2020-03-04] MEDS: DIPHENHYDRAMINE 50MG CAPSULE PO PRN ×3 (00:34→21:58)
[2020-03-04] MEDS: BLOOD SUGAR DIAGNOSTIC STRIP TEST SCH ×4 (00:34→17:12)
[2020-03-04] MEDS: IPRATROPIUM/ALBUTEROL 0.5-3(2.5)MG/3ML NEB HHN SCH ×4 (00:41→23:18)
[2020-03-04] MEDS: LORAZEPAM 0.5MG TABLET PO PRN ×3 (03:26→22:47)
[2020-03-04] MEDS: INSULIN LISPRO 100 UNITS/ML SUBCUT SCH ×4 (05:50→17:50)
[2020-03-04] MEDS: METRONIDAZOLE 500MG TABLET PO SCH ×3 (06:07→20:25)
[2020-03-04] MEDS: ACETAMINOPHEN 650MG/20.3ML UDC PO PRN ×3 (08:06→20:31)
[2020-03-04] MEDS: COLISTIMETHATE SODIUM 150MG/VIAL INH SCH (08:28)
[2020-03-04 12:35] LABS: HEMATOCRIT 28.8 % (36.0-48.0); HEMOGLOBIN 9.4 g/dL (12.0-16.0); MEAN CORPUSCULAR HEMOGLOBIN 29.1 pg (28.0-32.0); MEAN CORPUSCULAR VOLUME 89.2 fL (81.0-99.0); PLATELET 363 x1000/uL (130-400); RED BLOOD CELL COUNT 3.23 mill/uL (4.2-5.4); RED CELL DISTRIBUTION WIDTH 19.2 % (11.6-14.6)
[2020-03-04 12:46] LABS: CHLORIDE 101 mEq/L (98-107)
[2020-03-04 17:10] LABS: QFT TB GOLD PLUS Negative (Negative); QFT TB1 AG VALUE 0.02 IU/mL (.)
[2020-03-04] MEDS: AZTREONAM 1 G in DEXTROSE 5% WATER 50 ML IV SCH (17:24)
[2020-03-04] MEDS: SODIUM CHLORIDE 0.9% 1,000 ML IV SCH (17:49)
[2020-03-04] MEDS: RISPERIDONE 1MG TABLET NG SCH (20:25)
[2020-03-05] VITALS (12 sets, daily range): BP systolic 85–150; BP diastolic 43–75
[2020-03-05] MEDS: INSULIN LISPRO 100 UNITS/ML SUBCUT SCH
[2020-03-05] MEDS: IPRATROPIUM/ALBUTEROL 0.5-3(2.5)MG/3ML NEB HHN SCH ×3 (01:11→16:10)
[2020-03-05] MEDS: AZTREONAM 1 G in DEXTROSE 5% WATER 50 ML IV SCH ×3 (04:24→18:42)
[2020-03-05] MEDS: BLOOD SUGAR DIAGNOSTIC STRIP TEST SCH ×4 (06:14→18:46)
[2020-03-05] MEDS: METRONIDAZOLE 500MG TABLET PO SCH ×3 (06:14→21:37)
[2020-03-05] MEDS: COLISTIMETHATE SODIUM 150MG/VIAL INH SCH ×2 (08:14→21:12)
[2020-03-05] MEDS: RISPERIDONE 1MG TABLET NG SCH ×2 (09:11→21:37)
[2020-03-05] MEDS: ACETAMINOPHEN 650MG/20.3ML UDC PO PRN ×2 (09:37→17:23)
[2020-03-05] MEDS: LORAZEPAM 0.5MG TABLET PO PRN ×2 (09:37→13:52)
[2020-03-05] MEDS: DIPHENHYDRAMINE 50MG CAPSULE PO PRN (15:12)
[2020-03-05] MEDS: SODIUM CHLORIDE 0.9% 1,000 ML IV SCH (18:42)
[2020-03-05] MEDS: ACETAMINOPHEN WITH CODEINE 300/30MG TABLET PO PRN (21:39)
[2020-03-06] VITALS (13 sets, daily range): BP systolic 95–122; BP diastolic 49–80
[2020-03-06] MEDS: BLOOD SUGAR DIAGNOSTIC STRIP TEST SCH ×4 (00:37→18:00)
[2020-03-06] MEDS: AZTREONAM 1 G in DEXTROSE 5% WATER 50 ML IV SCH ×3 (02:05→18:28)
[2020-03-06] MEDS: METRONIDAZOLE 500MG TABLET PO SCH ×2 (05:22→14:54)
[2020-03-06 06:24] LABS: BASOPHILS % 0.6 % (0.0-2.0); EOSINOPHILS % 1.2 % (0.0-5.0); HEMATOCRIT. 26.6 % (36.0-48.0); HEMOGLOBIN. 8.6 g/dL (12.0-16.0); LYMPHOCYTES % 7.9 % (20.0-50.0); MEAN CORPUSCULAR HEMOGLOBIN 28.8 pg (28.0-32.0); MEAN CORPUSCULAR VOLUME 89.4 fL (81.0-99.0); MEAN PLATELET VOLUME 8.1 fl (7.4-10.4); MONOCYTES % 7.9 % (2.0-8.0); NEUTROPHILS % 82.4 % (40.0-76.0); PLATELET 341 x1000/uL (130-400); RED BLOOD CELL COUNT 2.98 mill/uL (4.2-5.4); RED CELL DISTRIBUTION WIDTH 18.7 % (11.6-14.6)
[2020-03-06 06:35] LABS: CHLORIDE 99 mEq/L (98-107)
[2020-03-06] MEDS: COLISTIMETHATE SODIUM 150MG/VIAL INH SCH ×2 (08:11→20:33)
[2020-03-06] MEDS: IPRATROPIUM/ALBUTEROL 0.5-3(2.5)MG/3ML NEB HHN SCH ×2 (08:11→15:39)
[2020-03-06] MEDS: RISPERIDONE 1MG TABLET NG SCH ×2 (08:40→20:46)
[2020-03-06] MEDS: ACETAMINOPHEN WITH CODEINE 300/30MG TABLET PO PRN (08:41)
[2020-03-06] MEDS: LORAZEPAM 0.5MG TABLET PO PRN ×3 (10:36→21:38)
[2020-03-06] MEDS ORDERED: LIDOCAINE HCL 1% 20ML VIAL (Pyxis) INJ ONE (13:52)
[2020-03-06] MEDS ORDERED: ACETYLCYSTEINE 100MG/ML 10% VIAL 4ML INH SCH (14:00)
[2020-03-06] MEDS: ACETAMINOPHEN 650MG/20.3ML UDC PO PRN (14:54)
[2020-03-06] MEDS ORDERED: METRONIDAZOLE 500MG TABLET PO SCH (21:00)
[2020-03-07] MEDS ORDERED: RISPERIDONE 1MG TABLET NG SCH (09:00)
== END 2020-03-06 23:07 | DRG 4 ==
LOC: ER 18:49 → MICUNO 22:35 → EDBEDREQTM 22:42 → EDBEDREQ 22:42 → EDBEDREQSVC 22:42 → ENRESERV 23:11 → CVICU 01-07 01:37 → 5EST 01-20 05:20 → MICUNO 01-24 15:47 → 5EST 01-31 01:15
PROVIDERS: ADMIT Internal Medicine; ATTEND Internal Medicine
PROC: 5A09357 Assistance with Respiratory Ventilation, Less than 24 Consecutive Hours, Continuous Positive Airway Pressure (ICD-10-PCS; 2020-01-06)
PROC: 0D1N0Z4 Bypass Sigmoid Colon to Cutaneous, Open Approach (ICD-10-PCS; 2020-01-07)
PROC: 02HV33Z Insertion of Infusion Device into Superior Vena Cava, Percutaneous Approach (ICD-10-PCS; 2020-01-07)
PROC: B548ZZA Ultrasonography of Superior Vena Cava, Guidance (ICD-10-PCS; 2020-01-07)
PROC: 0DBN0ZZ Excision of Sigmoid Colon, Open Approach (ICD-10-PCS; 2020-01-07)
PROC: 5A1955Z Respiratory Ventilation, Greater than 96 Consecutive Hours (ICD-10-PCS; 2020-01-14)
PROC: 0BH17EZ Insertion of Endotracheal Airway into Trachea, Via Natural or Artificial Opening (ICD-10-PCS; 2020-01-14)
PROC: 0B110F4 Bypass Trachea to Cutaneous with Tracheostomy Device, Open Approach (ICD-10-PCS; principal; 2020-01-16)
PROC: 0GTJ0ZZ Resection of Thyroid Gland Isthmus, Open Approach (ICD-10-PCS; 2020-01-16)
PROC: 30233N1 Transfusion of Nonautologous Red Blood Cells into Peripheral Vein, Percutaneous Approach (ICD-10-PCS; 2020-01-22)
PROC: 0DB78ZX Excision of Stomach, Pylorus, Via Natural or Artificial Opening Endoscopic, Diagnostic (ICD-10-PCS; 2020-01-28)
PROC: 0DH63UZ Insertion of Feeding Device into Stomach, Percutaneous Approach (ICD-10-PCS; 2020-01-28)
PROC: 05HY33Z Insertion of Infusion Device into Upper Vein, Percutaneous Approach (ICD-10-PCS; 2020-03-06)
PROC: B54MZZA Ultrasonography of Right Upper Extremity Veins, Guidance (ICD-10-PCS; 2020-03-06)
DX: A41.9 Sepsis, unspecified organism (principal); J16.8 Pneumonia due to other specified infectious organisms; E43 Unspecified severe protein-calorie malnutrition; J15.1 Pneumonia due to Pseudomonas; J15.6 Pneumonia due to other Gram-negative bacteria; R65.21 Severe sepsis with septic shock; B49 Unspecified mycosis; E87.4 Mixed disorder of acid-base balance; J69.0 Pneumonitis due to inhalation of food and vomit; I50.33 Acute on chronic diastolic (congestive) heart failure; E87.2 Acidosis; J96.01 Acute respiratory failure with hypoxia; J85.0 Gangrene and necrosis of lung; N17.9 Acute kidney failure, unspecified; K57.20 Diverticulitis of large intestine with perforation and abscess without bleeding; E11.9 Type 2 diabetes mellitus without complications; J44.0 Chronic obstructive pulmonary disease with (acute) lower respiratory infection; D50.9 Iron deficiency anemia, unspecified; F17.210 Nicotine dependence, cigarettes, uncomplicated; E66.01 Morbid (severe) obesity due to excess calories; F29 Unspecified psychosis not due to a substance or known physiological condition; F41.1 Generalized anxiety disorder; K29.70 Gastritis, unspecified, without bleeding; K76.0 Fatty (change of) liver, not elsewhere classified; K76.89 Other specified diseases of liver; Z20.828 Contact with and (suspected) exposure to other viral communicable diseases; N73.9 Female pelvic inflammatory disease, unspecified; R13.10 Dysphagia, unspecified; Z78.1 Physical restraint status; Z82.49 Family history of ischemic heart disease and other diseases of the circulatory system; Z68.37 Body mass index [BMI] 37.0-37.9, adult
CPT/HCPCS: 31500; 36415; 36600; 71045; 71250; 71275; 74018; 74177; 76937; 80048; 80053; 80061; 80076; 80202; 81003; 82040; 82270; 82375; 82550; 82553; 82805; 82962; 83036; 83605; 83735; 83880; 84100; 84134; 84145; 84439; 84443; 84478; 84484; 85014; 85018; 85025; 85027; 85379; 86480; 86850; 86870; 86900; 86920; 87070; 87077; 87106; 87107; 87116; 87186; 87635; 87804; 88305; 88307; 88313; 93005; 93306; 94003; 94640; 94660; 94667; 96365; 97110; 97162; 97163; 97164; 97166; 99285; C1725; C9113; J0278; J0690; J0692; J0713; J0770; J1100; J1170; J1630; J1650; J1815; J1940; J1956; J2060; J2185; J2248; J2250; J2270; J2405; J2543; J2704; J2710; J2765; J2930; J3010; J3370; J3480; J3490; J7030; J7040; J7042; J7050; J7060; J7608; J8540; P9016; P9041; Q0163; Q9963; Q9967